=== PATIENT | female | born 1940 | race Caucasian/White ===

== ENCOUNTER → 2017-05-02 | Outpatient (CLI) | payer MEDICARE ==
[~2017-05-02] MED LIST: ACET1TAB12; AMLO5TAB2; AMLO5TAB2 PO; APAP PO; ASP325TEC PO; ATEN100T88 PO; ATEN50TA; ATEN50TA PO; CETI10TA17; CLN.1T; CLN.1T PO; CLOP75TA PO; FLUT1DIS28; FRSM40T PO; HYDR1TAB8; KCL20TCR PO; LORA1TAB; LORA1TAB PO; NF-CARBAMX; NF-CARBAMX PO; OMEP-10; OXY PO; OXYC1TAB95; PROP1TAB2; PROP1TAB77 PO; SIMV20TA3 PO; SLMFT1E INH; SRTR100T; SRTR100T PO; TRIA1CAP4 PO; TRIA1TAB3 PO
--- NOTE | 2017-05-02 15:26 | Diagnostic Imaging Report ---
INDICATION: Cough and COPD. COMPARISON: 09/02/2011. FINDINGS: The heart size is normal. The mediastinum is unremarkable. There is no pleural effusion or pneumothorax. IMPRESSION: No acute cardiopulmonary abnormality. Dictated by: Dictated on workstation # [id number]
== END ==
LOC: RAD 14:46
PROVIDERS: ATTEND Nurse Practitioner Family
DX: J44.9 Chronic obstructive pulmonary disease, unspecified (principal)
CPT/HCPCS: 71046

== ENCOUNTER → 2017-10-24 | Outpatient (CLI) | payer MEDICARE | END | disposition home or self-care (01) | LOC: PREOP 05:38 | PROVIDERS: ATTEND Surgery | DX: Z01.818 Encounter for other preprocedural examination (principal) ==

== ENCOUNTER 2020-07-13 12:35 | Inpatient (IN) | payer MEDICARE ==
[~2020-07-13] VITALS: Ht 165 cm; Wt 85.3 kg
[2020-07-13] MEDS ORDERED: RT-ALBUTEROL SULF 2.5 MG/3 ML PRE-MIX VIAL INH STA (12:40)
[2020-07-13] MEDS ORDERED: RT-ALBUTEROL/IPRATROPIUM 3 ML (DUONEB) VIAL INH ONE (12:45)
[2020-07-13 12:58] LABS: ABG OXYGEN SATURATION 97 % (94-100); ABG PCO2 61 MMHG (35-45); ABG PH 7.39 (7.37-7.43); ABG PO2 134 MMHG (79-93); ABG TCO2 38.6 MMOL/L (21.0-31.0)
--- NOTE | 2020-07-13 13:03 | Diagnostic Imaging Report ---
Portable erect AP chest at 12:59. Indication: Sepsis In the interval since the prior exam of 05/02/2020, a diffuse alveolar/interstitial infiltrate has developed throughout much of the left lung. Most likely secondary to pneumonia/atelectasis. There could be some pleural fluid present on the left as well. In addition there is also at least moderate pneumonia/atelectasis involving the right infrahilar region. There may be a small right pleural effusion present also. The right upper lung is generally clear. The heart is partially obscured but seems stable compared to the prior exam. The mediastinum is not widened. The osseous structures are intact. Impression: The appearance of the chest has worsened considerably since the prior exam as bilateral pneumonia/atelectasis and bilateral pleural effusions have developed. There is much greater involvement on the left. A followup study would be recommended for continued evaluation. Dictated by: Dictated on workstation # [id number]
[2020-07-13 13:04] LABS: BASOPHILS % (AUTO) 0 % (0-10); EOSINOPHILS # (AUTO) 0.1 10^3/uL (0.0-0.3); EOSINOPHILS % (AUTO) 0 % (0-10); HEMATOCRIT 33 % (35-52); HEMOGLOBIN 9.6 g/dL (11.5-16.0); LYMPHOCYTES # (AUTO) 0.7 X 10^3 (1.0-4.0); LYMPHOCYTES % (AUTO) 5 % (12-44); MEAN CORPUSCULAR HEMOGLOBIN 25 pg (25-34); MEAN CORPUSCULAR HGB CONC 29 g/dL (32-36); MEAN CORPUSCULAR VOLUME 84 fL (80-99); MEAN PLATELET VOLUME 10.9 fL (9.0-12.2); MONOCYTES % (AUTO) 7 % (0-12); NEUTROPHILS # (AUTO) 13.2 X 10^3 (1.8-7.8); NEUTROPHILS % (AUTO) 88 % (42-75); PLATELET COUNT 437 10^3/uL (130-400)
[2020-07-13 13:05] LABS: ALLENS TEST YES-POS
[2020-07-13 13:06] LABS: INSPIRED O2 BIPAP 100%; PATIENT TEMP 35.8; VENTILATOR NO
[2020-07-13 13:10] LABS: ALBUMIN 2.7 GM/DL (3.2-4.5); CHLORIDE 91 MMOL/L (98-107); INR 1.4 (0.8-1.4); POTASSIUM 3.8 MMOL/L (3.6-5.0); PROTHROMBIN TIME PATIENT 17.7 SEC (12.2-14.7); SODIUM 139 MMOL/L (135-145)
[2020-07-13 13:13] LABS: GLUCOSE 148 MG/DL (70-105); TOTAL PROTEIN 6.5 GM/DL (6.4-8.2)
[2020-07-13 13:14] LABS: CARBON DIOXIDE 33 MMOL/L (21-32)
[2020-07-13 13:15] LABS: BILIRUBIN,TOTAL 0.5 MG/DL (0.1-1.0)
[2020-07-13 13:16] LABS: ALKALINE PHOSPHATASE 66 U/L (40-136)
[2020-07-13 13:17] LABS: CREATININE SERUM 0.77 MG/DL (0.60-1.30); GFR ESTIMATED > 60
[2020-07-13 13:18] LABS: BUN/CREATININE RATIO 16
[2020-07-13 13:19] LABS: ALANINE AMINOTRANSFERASE 19 U/L (0-55)
[2020-07-13 13:35] LABS: ANISOCYTOSIS SLIGHT; BAND NEUTROPHILS 2 %; EOSINOPHILS % (MANUAL) 2 %; HYPOCHROMASIA SLIGHT; LYMPHOCYTES % (MANUAL) 5 %; MICROCYTOSIS SLIGHT; MONOCYTES % (MANUAL) 5 %; NEUTROPHILS % (MANUAL) 86 %
--- NOTE | 2020-07-13 14:10 | ED General ---
General Chief Complaint: Respiratory Problems Stated Complaint: SOA Nursing Triage Note: ARRIVED VIA EMS FROM HOME WITH INCREASED SOA OVER THE LAST TWO WEEKS. ARRIVED WITH C-PAP ON. WHEN CPAP REMOVED ET PULSE OX 69% Nursing Sepsis Screen: Possible Severe Sepsis Risk Source of Information: Patient, EMS History of Present Illness Date Seen by Provider: July 13, 2020 Time Seen by Provider: 12:35 Initial Comments This 80-year-old woman with COPD presents to the emergency room complaining of increasing shortness of breath. She was given a DuoNeb treatment, 20 mg of IV Decadron, and CPAP by EMS. When transitioning over to our BiPAP, her oxygen saturation dropped below 70%. Patient requested a DO NOT RESUSCITATE status but she requests that her experience be "painless". Patient denies increased cough or fever. She has not been vaccinated for COVID-19 but denies any exposures. Allergies and Home Medications Allergies Coded Allergies: Sulfa (Sulfonamide Antibiotics) (Verified Allergy, Unknown, 09/03/11) Tetanus Vaccines and Toxoid (Verified Allergy, Unknown, 09/03/11) Home Medications Amlodipine Besylate 5 Mg Tablet, 5 MG PO DAILY, (Reported) Aspirin 325 Mg Tabec, 325 MG PO DAILY, (Reported) Atenolol 100 Mg Tablet, 1 EACH PO DAILY, (Reported) Carbamazepine 100 Mg Tab.sr.12h, 100 MG PO DAILY, (Reported) Furosemide 40 Mg Tab, 40 MG PO BID, (Reported) Potassium Chloride 20 Meq Tab, 20 MEQ PO BID, (Reported) Sertraline Hcl 100 Mg Tab, 100 MG PO DAILY, (Reported) Simvastatin 20 Mg Tablet, 20 MG PO DAILY, (Reported) Patient Home Medication List Home Medication List Reviewed: Yes Review of Systems Review of Systems Constitutional: no symptoms reported EENTM: no symptoms reported Respiratory: see HPI Cardiovascular: no symptoms reported Gastrointestinal: no symptoms reported Genitourinary: no symptoms reported : No Musculoskeletal: no symptoms reported Skin: no symptoms reported Psychiatric/Neurological: No Symptoms Reported Hematologic/Lymphatic: No Symptoms Reported Immunological/Allergic: no symptoms reported Past Dvofcby-Cwxgrv-Nlkaby Hx Past Med/Social Hx: Reviewed Nursing Past Med/Soc Hx Patient Social History Alcohol Use: Denies Use Smoking Status: Former Smoker Recent Infectious Disease Expo: No Recent Hopitalizations: Yes Past Medical History Surgeries: Yes (GALLBLADDER, TONSILS, ANKLE, STENTS) Coronary Stent, Gallbladder, Tonsillectomy Respiratory: Yes COPD Cardiac: Yes (STENTS) Heart Attack Neurological: No Reproductive Disorders: No Genitourinary: No Gastrointestinal: Yes Musculoskeletal: Yes Arthritis Endocrine: No HEENT: No Cancer: No Psychosocial: Yes Blood Disorders: No Physical Exam-Suspected Sepsis Physical Exam Vital Signs Vital Signs - First Documented 07/13/20 07/13/20 07/13/20 12:38 12:52 15:48 Temp 36.0 Pulse 130 Resp 24 B/P (MAP) 150/96 (114) Pulse Ox 69 O2 Delivery Room Air O2 Flow Rate 80.00 FiO2 100 Capillary Refill : Greater Than 3 Seconds Blood Pressure Mean: 114 Height, Weight, BMI Height: '" Weight: lbs. oz. kg; 29.00 BMI Method:Stated General Appearance: WD/WN, Mild Distress HEENT: PERRL/EOMI, Normal ENT Inspection Neck: Normal Inspection Respiratory: Accessory Muscle Use, Decreased Breath Sounds, Wheezing Cardiovascular: No Edema, No Murmur, Tachycardia (Regular) Gastrointestinal: Non Tender, Soft Extremity: Non Tender, No Pedal Edema, Swelling Neurologic/Psychiatric: Alert, Oriented x3, No Motor/Sensory Deficits, Normal Mood/Affect, dinner cook II-XII Norm as Tested Skin: normal color, warm/dry Focused Exam Lactate Level 07/13/20 12:35: Lactic Acid Level 1.46 07/13/20 16:27: Lactic Acid Level 1.28 Lactic Acid Level Progress/Results/Core Measures Suspected Sepsis Recent Fever Within 48 Hours: No Infection Criteria Present: Suspected New Infection New/Unexplained Altered Menta: No Sepsis Screen: Possible Severe Sepsis Risk SIRS Temperature: Pulse: 125 Respiratory Rate: 23 Laboratory Tests 07/13/20 12:35: White Blood Count 15.0H Blood Pressure 150 /96 Mean: 114 07/13/20 12:35: Lactic Acid Level 1.46 07/13/20 16:27: Lactic Acid Level 1.28 Laboratory Tests 07/13/20 12:35: Creatinine 0.77, INR Comment 1.4, Platelet Count 437H, Total Bilirubin 0.5 Results/Orders Lab Results Laboratory Tests Test 07/13/20 12:35 07/13/20 12:45 07/13/20 15:55 07/13/20 16:27 Range/Units White Blood Count 15.0 H 4.3-11.0 10^3/uL Red Blood Count 3.89 3.80-5.11 10^6/uL Hemoglobin 9.6 L 11.5-16.0 g/dL Hematocrit 33 L 35-52 % Mean Corpuscular Volume 84 80-99 fL Mean Corpuscular Hemoglobin 25 25-34 pg Mean Corpuscular Hemoglobin Concent 29 L 32-36 g/dL Red Cell Distribution Width 16.2 H 10.0-14.5 % Platelet Count 437 H 130-400 10^3/uL Mean Platelet Volume 10.9 9.0-12.2 fL Immature Granulocyte % (Auto) 0 % Neutrophils (%) (Auto) 88 H 42-75 % Lymphocytes (%) (Auto) 5 L 12-44 % Monocytes (%) (Auto) 7 0-12 % Eosinophils (%) (Auto) 0 0-10 % Basophils (%) (Auto) 0 0-10 % Neutrophils # (Auto) 13.2 H 1.8-7.8 X 10^3 Lymphocytes # (Auto) 0.7 L 1.0-4.0 X 10^3 Monocytes # (Auto) 1.0 0.0-1.0 X 10^3 Eosinophils # (Auto) 0.1 0.0-0.3 10^3/uL Basophils # (Auto) 0.0 0.0-0.1 10^3/uL Immature Granulocyte # (Auto) 0.1 0.0-0.1 10^3/uL Neutrophils % (Manual) 86 % Lymphocytes % (Manual) 5 % Monocytes % (Manual) 5 % Eosinophils % (Manual) 2 % Band Neutrophils 2 % Hypochromasia SLIGHT Anisocytosis SLIGHT Microcytosis SLIGHT Prothrombin Time 17.7 H 12.2-14.7 SEC INR Comment 1.4 0.8-1.4 Activated Partial Thromboplast Time 34 24-35 SEC Sodium Level 139 135-145 MMOL/L Potassium Level 3.8 3.6-5.0 MMOL/L Chloride Level 91 L 98-107 MMOL/L Carbon Dioxide Level 33 H 21-32 MMOL/L Anion Gap 15 H 5-14 MMOL/L Blood Urea Nitrogen 12 7-18 MG/DL Creatinine 0.77 0.60-1.30 MG/DL Estimat Glomerular Filtration Rate > 60 BUN/Creatinine Ratio 16 Glucose Level 148 H 70-105 MG/DL Lactic Acid Level 1.46 1.28 0.50-2.00 MMOL/L Calcium Level 9.0 8.5-10.1 MG/DL Corrected Calcium 10.0 8.5-10.1 MG/DL Total Bilirubin 0.5 0.1-1.0 MG/DL Aspartate Amino Transf (AST/SGOT) 27 5-34 U/L Alanine Aminotransferase (ALT/SGPT) 19 0-55 U/L Alkaline Phosphatase 66 40-136 U/L C-Reactive Protein High Sensitivity 16.49 H 0.00-0.50 MG/DL B-Type Natriuretic Peptide 49.6 <100.0 PG/ML Total Protein 6.5 6.4-8.2 GM/DL Albumin 2.7 L 3.2-4.5 GM/DL Influenza Type A (RT-PCR) Not Detected Not Detecte Influenza Type B (RT-PCR) Not Detected Not Detecte SARS-CoV-2 RNA (RT-PCR) Not Detected Not Detecte Blood Gas Puncture Site L RAD Blood Gas Patient Temperature 35.8 Arterial Blood pH 7.39 7.37-7.43 Arterial Blood Partial Pressure CO2 61 H 35-45 MMHG Arterial Blood Partial Pressure O2 134 H 79-93 MMHG Arterial Blood HCO3 37 H 23-27 MMOL/L Arterial Blood Total CO2 38.6 H 21.0-31.0 MMOL/L Arterial Blood Oxygen Saturation 97 94-100 % Arterial Blood Base Excess 11.0 H -2.5-2.5 MMOL/L Lenny Test YES-POS Blood Gas Ventilator Setting NO Blood Gas Inspired Oxygen BIPAP 100% Urine Color DARK YELLOW Urine Clarity CLOUDY Urine pH 6.0 5-9 Urine Specific [place] >=1.030 1.016-1.022 Urine Protein 1+ H NEGATIVE Urine Glucose (UA) NEGATIVE NEGATIVE Urine Ketones 1+ H NEGATIVE Urine Nitrite NEGATIVE NEGATIVE Urine Bilirubin 1+ H NEGATIVE Urine Urobilinogen 1.0 < = 1.0 MG/DL Urine Leukocyte Esterase NEGATIVE NEGATIVE Urine RBC (Auto) TRACE-I NEGATIVE Urine RBC 2-5 H /HPF Urine WBC 2-5 /HPF Urine Crystals PRESENT H /LPF Urine Amorphous Sediment LARGE FLOR URATES H /LPF Urine Bacteria TRACE /HPF Urine Casts NONE /LPF Urine Mucus NEGATIVE /LPF Urine Culture Indicated CULTURE PENDING Test 07/13/20 20:05 Range/Units My Orders Orders - KENDRA HURTADO MD Cbc With Automated Diff (07/13/20 12:40) Comprehensive Metabolic Panel (07/13/20 12:40) Blood Culture (07/13/20 12:40) Sputum Culture (07/13/20 12:40) Urine Culture (07/13/20 12:40) Protime With Inr (07/13/20 12:40) Partial Thromboplastin Time (07/13/20 12:40) Chest 1 View, Ap/Pa Only (07/13/20 12:40) Ed Iv/Invasive Line Start (07/13/20 12:40) Ed Iv/Invasive Line Start (07/13/20 12:40) Vital Signs Adult Sepsis Patie Q15M (07/13/20 12:40) O2 (07/13/20 12:40) Remove Rings In Anticipation O (07/13/20 12:40) Lactic Acid Analyzer (07/13/20 12:40) BNP (07/13/20 12:40) Hs C Reactive Protein (07/13/20 12:40) Albuterol Pre-Mix Nebs (Rt) (Proventil (07/13/20 12:40) Albuterol/Ipra Inhalation Soln (Duoneb I (07/13/20 12:45) Svn Small Volume Nebulizer (07/13/20 12:40) Svn Small Volume Nebulizer (07/13/20 12:40) Covid 19 Inhouse Test (07/13/20 12:41) Influenza A And B By Pcr (07/13/20 12:41) Arterial Blood Gas (07/13/20 12:45) Arterial Blood Draw (07/13/20 ) Manual Differential (07/13/20 12:35) Cefepime Injection (Maxipime Injection) (07/13/20 14:15) Lactated Ringers (Lr 1000 Ml Iv Solution (07/13/20 14:15) Hydrocodone/Apap 5/325 Tablet (Lortab 5 (07/13/20 14:45) Medications Given in ED Current Medications Medications Dose Ordered Sig/Iveth Route Start Time Stop Time Status Last Admin Dose Admin Albuterol/ Ipratropium 3 ml ONCE ONCE INH 07/13/20 12:45 07/13/20 12:46 DC 07/13/20 12:52 3 ML Vital Signs/I&O 07/13/20 07/13/20 07/13/20 07/13/20 12:38 12:52 15:33 15:45 Temp 36.0 Pulse 130 125 121 124 Resp 24 23 16 33 B/P (MAP) 150/96 (114) 144/65 144/72 (96) Pulse Ox 69 100 95 O2 Delivery Room Air Nasal Cannula Vapotherm O2 Flow Rate 80.00 4.00 30.00 100.00 07/13/20 07/13/20 07/13/20 07/13/20 15:48 15:49 16:00 16:00 Temp 36.0 Pulse 125 118 Resp 21 B/P (MAP) 142/70 (94) Pulse Ox 95 95 97 97 O2 Delivery Vapotherm Vapotherm Vapotherm O2 Flow Rate 30.00 30.00 30.00 100.00 FiO2 100 100 80 07/13/20 07/13/20 07/13/20 07/13/20 16:01 16:41 17:00 18:00 Pulse 123 108 Resp 21 B/P (MAP) 119/62 (81) Pulse Ox 91 91 O2 Delivery Vapotherm Vapotherm Vapotherm O2 Flow Rate 30.00 30.00 30.00 80.00 80.00 FiO2 80 07/13/20 18:00 Pulse 101 Resp 20 B/P (MAP) 120/57 (78) Pulse Ox 91 O2 Delivery Vapotherm O2 Flow Rate 30.00 80.00 Capillary Refill : Greater Than 3 Seconds Blood Pressure Mean: 114 Progress Note #1: Time: 14:09 Progress Note Patient appears to have a sepsis with respiratory failure and COPD exacerbation. In the absence of presence of heart failure was uncertain until the BNP returned normal. We can now start high-volume fluid resuscitation for severe sepsis. We will start with a liter of LR in the emergency room. Patient is feeling much better. She is receiving an hour-long plus nebulizer treatment. She received dexamethasone 20 mg by EMS. It is unclear to me in retrospect if that was nebulized or injected. Progress Note #2: Progress Note Cefepime was administered for initial antibiotic therapy. Diagnostic Imaging Diagonstic Imaging: Xray Plain Films/CT/US/NM/MRI: chest Comments NAME: GENEVIEVE [facility]INOCO [facility] REC#: [id number] PT STATUS: REG ER : 1940 PHYSICIAN: KENDRA HURTADO MD ADMIT DATE: 07/13/20/ER Draft Date of Exam:07/13/20 CHEST 1 VIEW, AP/PA ONLY Portable erect AP chest at 12:59. Indication: Sepsis In the interval since the prior exam of 05/02/2020, a diffuse alveolar/interstitial infiltrate has developed throughout much of the left lung. Most likely secondary to pneumonia/atelectasis. There could be some pleural fluid present on the left as well. In addition there is also at least moderate pneumonia/atelectasis involving the right infrahilar region. There may be a small right pleural effusion present also. The right upper lung is generally clear. The heart is partially obscured but seems stable compared to the prior exam. The mediastinum is not widened. The osseous structures are intact. Impression: The appearance of the chest has worsened considerably since the prior exam as bilateral pneumonia/atelectasis and bilateral pleural effusions have developed. There is much greater involvement on the left. A followup study would be recommended for continued evaluation. Dictated on workstation # [id number] Dict: 07/13/20 1300 Trans: 07/13/20 1302 [facility] [id number] Interpreted by: ANASTACIA RODRIGUEZ MD Departure Communication (Admissions) Time/Spoke to Admitting Phy: 13:30 Dr. Mookie Domínguez Impression Primary Impression: Severe sepsis Additional Impressions: Pneumonia Qualified Codes: J18.9 - Pneumonia, unspecified organism Respiratory failure Qualified Codes: J96.01 - Acute respiratory failure with hypoxia; J96.02 - Acute respiratory failure with hypercapnia COPD exacerbation Disposition: ADMITTED INPATIENT Condition: Improved Admissions Decision to Admit Reason: Admit from ER (General) Decision to Admit/Date: July 13, 2020 Time/Decision to Admit Time: 12:40 Departure-Patient Inst. Referrals: ABHIJIT VELASQUEZ MD (PCP/Family) Primary Care Physician KENDRA HURTADO MD July 13, 2020 14:10
[2020-07-13] MEDS ORDERED: LACTATED RINGERS 1,000 ML IV ONE (14:15)
[2020-07-13] MEDS ORDERED: CEFEPIME INJECTION 2,000 MG in WATER (STERILE) FOR INJECTION 20 ML IV ONE (14:15)
[2020-07-13] MEDS ORDERED: HYDROcodone/APAP 5 MG/325 MG (LORTAB) TAB PO ONE (14:45)
[2020-07-13 15:49] VITALS: BP 150/96
[2020-07-13] MEDS ORDERED: RT-ALBUTEROL/IPRATROPIUM 3 ML (DUONEB) VIAL INH PRN (16:00)
[2020-07-13 16:11] LABS: BILIRUBIN,URINE 1+ (NEGATIVE); CLARITY,URINE CLOUDY; COLOR,URINE DARK YELLOW; GLUCOSE, URINE (UA) NEGATIVE (NEGATIVE); KETONES,URINE 1+ (NEGATIVE); LEUKOCYTE ESTERASE ,URINE NEGATIVE (NEGATIVE); NITRITE,URINE NEGATIVE (NEGATIVE); PROTEIN,URINE 1+ (NEGATIVE)
[2020-07-13] MEDS ORDERED: LACTATED RINGERS 1,000 ML IV SCH (16:30)
[2020-07-13 16:33] LABS: AMORPHOUS SEDIMENT,UR LARGE AMOR URATES /LPF; BACTERIA,URINE TRACE /HPF
[2020-07-13] MEDS: methylPREDNISolone 40 MG/ML (Solu-MEDROL) VIAL IV SCH ×2 (17:40→20:42)
[2020-07-13] MEDS: RT-ALBUTEROL/IPRATROPIUM 3 ML (DUONEB) VIAL INH SCH ×2 (18:00→22:33)
[2020-07-13] MEDS: CEFEPIME 1,000 MG/SWFI 10 ML IV PUSH IV SCH ×2 (19:36)
--- NOTE | 2020-07-13 19:58 | History & Physical ---
History of Present Illness History of Present Illness Reason for visit/HPI 80 year old female admitted for acute respiratory failure with hypoxia due to pneumonia, COPD exacerbation, and pleural effusions. Patient was brought in by EMS on CPAP and desaturated to 60s when the CPAP was removed. Unsure if she was given dexamethasone IV or inhaled- I suspect it was inhaled treatment. Patient did improve after an hour long breathing treatment. Patient made it clear she wants to be DNR and pass peacefully and least amount of pain. On interviewing her in the ICU- She denies any pain. Feels better but a little groggy as I woke her up from being asleep. Not wanting to converse. Blood pressure holding steady. No fever. Tachycardia at times. COVID, flu negative. Date of Admission July 13, 2020 at 13:30 Date Seen by a Provider: July 13, 2020 Time Seen by a Provider: 19:58 I consulted on this patient on 07/13/20 19:58 Attending Physician Mookie Flanagan MD Admitting Physician Italia Goldman MD Consult Allergies and Home Medications Allergies Coded Allergies: Sulfa (Sulfonamide Antibiotics) (Verified Allergy, Unknown, 09/03/11) Tetanus Vaccines and Toxoid (Verified Allergy, Unknown, 09/03/11) Home Medications Amlodipine Besylate 5 Mg Tablet, 5 MG PO DAILY, (Reported) Aspirin 325 Mg Tabec, 325 MG PO DAILY, (Reported) Atenolol 100 Mg Tablet, 1 EACH PO DAILY, (Reported) Last Action: Continued Carbamazepine 100 Mg Tab.sr.12h, 100 MG PO DAILY, (Reported) Furosemide 40 Mg Tab, 40 MG PO BID, (Reported) Potassium Chloride 20 Meq Tab, 20 MEQ PO BID, (Reported) Sertraline Hcl 100 Mg Tab, 100 MG PO DAILY, (Reported) Last Action: Continued Simvastatin 20 Mg Tablet, 20 MG PO DAILY, (Reported) Patient Home Medication List Home Medication List Reviewed: No Past Mwjgwfu-Ajtcum-Qjbiha Hx Patient Social History Smoking Status: Former Smoker Recent Hopitalizations: Yes Have you traveled recently?: No Alcohol Use?: No Pt feels they are or have been: No Surgeries Yes (GALLBLADDER, TONSILS, ANKLE, STENTS) Respiratory Yes Cardiovascular Yes (STENTS) Heart Attack Neurological No Reproductive System Hx Reproductive Disorders: No Genitourinary No Gastrointestinal Yes Musculoskeletal Yes Arthritis Endocrine History of Endocrine Disorders: No Cancer No Psychosocial History of Psychiatric Problem: Yes Blood Transfusions History of Blood Disorders: No Review of Systems Review of Systems General: No Chills, No Night Sweats HEENT: No Visual Changes Pulmonary: Dyspnea Cardiovascular: No: Chest Pain, Palpitations Gastrointestinal: No: Nausea, Vomiting Genitourinary: No Dysuria Musculoskeletal: No: arm pain, back pain Neurological: Weakness Physical Exam Vital Signs Vital Signs - First Documented 07/13/20 07/13/20 07/13/20 12:38 12:52 15:48 Temp 36.0 Pulse 130 Resp 24 B/P (MAP) 150/96 (114) Pulse Ox 69 O2 Delivery Room Air O2 Flow Rate 80.00 FiO2 100 Capillary Refill : Greater Than 3 Seconds Height, Weight, BMI Height: '" Weight: lbs. oz. kg; 29.75 BMI Method:Stated General Appearance: Mild Distress HEENT: PERRL/EOMI (left eyelid droopy, white/clouding of left eye.) Neck: Non Tender, Supple Respiratory: Chest Non Tender, Crackles, Decreased Breath Sounds, Respiratory Distress (mild) Cardiovascular: Regular Rate, Rhythm Gastrointestinal: Non Tender, Soft Rectal: Deferred Back: Normal Inspection, No CVA Tenderness Extremity: Non Tender, No Calf Tenderness Neurologic/Psychiatric: Alert Skin: Warm/Dry Lymphatic: No Adenopathy Assessment/Plan Assessment/Plan Admission Dx sepsis due to pneumonia acute hypoxic respiratory failure COPD exacerbation. Admission Status: Inpatient Order (span 2 midnights) Reason for Inpatient Admission: expect patient to be admitted for over 2 midnights. With her comorbidities and likely low baseline reserve she will not recover within 2 midnights- given extent of her pneumonia (bilateral) and pleural effusions. Assessment and Plan 07/13/20- admitted for sepsis due to pneumonia viral vs bacterial- procalcitonin level indicates not bacterial. CXR supports pneumonia- left side lungs. But also likely has pleural effusion bilaterally. Blood pressure is holding. Turned down IVF from 150 to 100ml/hr. Decision making process- suspect she has a some degree of left heart failure and flooding her with IVF would be detrimental as her sepsis is not likely to progress to severe/shock. Also patient is DNR and her bigger issue right now is COPD exacerbation. -Continue respiratory support- may need CPAP/BiPAP- continue IV steroids and cefepime. -will reassess in AM with CXR and labs. -will assess cardiac function- with echocardiogram- as I suspect a lower LVEF. Dispo: guarded DVT ppx: lovenox. Problems: (1) Acute respiratory failure with hypoxia (2) Sepsis (3) COPD exacerbation (4) Pneumonia Qualifiers: Qualified Codes: J18.9 - Pneumonia, unspecified organism (5) HTN (hypertension) Qualifiers: Qualified Codes: I10 - Essential (primary) hypertension Assessment & Plan: holding bp medications. (6) DMII (diabetes mellitus, type 2) Assessment & Plan: as long as she is on steroids expect high blood sugars. Sliding scale insulin. MOOKIE FLANAGAN MD July 13, 2020 19:58
[2020-07-13] MEDS: inSUlin ASPART (NovoLOG) 1 UNIT/0.01 ML (CHARGE PER UNIT) SC SCH (20:42)
[2020-07-13] MEDS: LACTATED RINGERS 1,000 ML IV SCH (22:27)
[2020-07-14] MEDS: CEFEPIME 1,000 MG/SWFI 10 ML IV PUSH IV SCH ×8 (01:52→20:11)
[2020-07-14] MEDS: RT-ALBUTEROL/IPRATROPIUM 3 ML (DUONEB) VIAL INH SCH ×6 (02:23→22:15)
[2020-07-14 03:15] LABS: CHLORIDE 94 MMOL/L (98-107); POTASSIUM 3.4 MMOL/L (3.6-5.0); SODIUM 139 MMOL/L (135-145)
[2020-07-14 03:16] LABS: CALCIUM 9.1 MG/DL (8.5-10.1)
[2020-07-14 03:17] LABS: GLUCOSE 245 MG/DL (70-105)
[2020-07-14 03:18] LABS: CARBON DIOXIDE 34 MMOL/L (21-32)
[2020-07-14 03:20] LABS: CREATININE SERUM 0.77 MG/DL (0.60-1.30); GFR ESTIMATED > 60
[2020-07-14 03:21] LABS: BUN/CREATININE RATIO 22
[2020-07-14 03:23] LABS: MAGNESIUM 1.4 MG/DL (1.6-2.4)
[2020-07-14] MEDS: methylPREDNISolone 40 MG/ML (Solu-MEDROL) VIAL IV SCH ×4 (04:01→22:49)
[2020-07-14] MEDS: inSUlin ASPART (NovoLOG) 1 UNIT/0.01 ML (CHARGE PER UNIT) SC SCH ×4 (05:21→20:11)
[2020-07-14] MEDS: KCL 20 MEQ TAB (K-DUR) PO SCH (05:22)
[2020-07-14] MEDS: POTASSIUM CL 10MEQ/50ML IVPB 50 ML IV SCH (05:30)
[2020-07-14] MEDS: MAGNESIUM 1 GM/100 ML IVPB 100 ML IV SCH (05:30)
[2020-07-14 06:59] LABS: BASOPHILS % (AUTO) 0 % (0-10); EOSINOPHILS % (AUTO) 0 % (0-10); HEMATOCRIT 29 % (35-52); HEMOGLOBIN 8.6 g/dL (11.5-16.0); LYMPHOCYTES # (AUTO) 0.5 10^3/uL (1.0-4.0); LYMPHOCYTES % (AUTO) 4 % (12-44); MEAN CORPUSCULAR HEMOGLOBIN 25 pg (25-34); MEAN CORPUSCULAR HGB CONC 29 g/dL (32-36); MEAN CORPUSCULAR VOLUME 85 fL (80-99); MONOCYTES # (AUTO) 0.4 10^3/uL (0.0-1.0); MONOCYTES % (AUTO) 3 % (0-12); NEUTROPHILS # (AUTO) 12.4 10^3/uL (1.8-7.8); NEUTROPHILS % (AUTO) 93 % (42-75); PLATELET COUNT 313 10^3/uL (130-400); WHITE BLOOD COUNT 13.3 10^3/uL (4.3-11.0)
[2020-07-14 07:24] LABS: LYMPHOCYTES % (MANUAL) 5 %; MONOCYTES % (MANUAL) 2 %; NEUTROPHILS % (MANUAL) 93 %; POLYCHROMASIA SLIGHT
[2020-07-14 07:25] LABS: ELLIPT/OVALOCYTES SLIGHT
[2020-07-14] MEDS: LACTATED RINGERS 1,000 ML IV SCH ×2 (07:31→15:49)
--- NOTE | 2020-07-14 08:21 | Diagnostic Imaging Report ---
INDICATION: COPD exacerbation, congestive heart failure. COMPARISON STUDY: Chest from yesterday. FINDINGS: Frontal view of the chest demonstrates bilateral pulmonary infiltrates, left greater than right, with a moderate to large left pleural effusion. The infiltrates appear little better on the right but worse on the left. Heart size appears stable. Vascularity is normal. IMPRESSION: Left pleural effusion is unchanged to slightly increased. Bilateral infiltrates worse on the left than the right have improved on the right but are worse on the left. Recommend continued follow-up exams. Dictated by: Dictated on workstation # [id number]
--- NOTE | 2020-07-14 10:08 | Pulmonary Progress Note ---
Subjective Date Seen by a Provider: July 14, 2020 Time Seen by a Provider: 10:03 Subjective/Events-last exam 80 admitted last night for SOB, thought to have PNA and COPD exacerbation, started on IV Cefepime, albuterol, COPD, not on anticoagulation, will order Remains on FiO2 80% vapotherm, 25 lpm no CP, but some SOB no coughing, no wheezing, has pitting edema Review of Systems Pulmonary: Dyspnea Sepsis Event Evaluation Height, Weight, BMI Height: '" Weight: lbs. oz. kg; 29.75 BMI Method:Stated Focused Exam Lactate Level 07/13/20 12:35: Lactic Acid Level 1.46 07/13/20 16:27: Lactic Acid Level 1.28 Exam Exam Vital Signs Date Time Temp Pulse Resp B/P (MAP) Pulse Ox O2 Delivery O2 Flow Rate FiO2 07/14/20 09:00 126 13 141/74 (96) 91 Vapotherm 25.00 70.00 07/14/20 08:00 120 16 136/64 (88) 90 Vapotherm 25.00 70.00 07/14/20 08:00 91 Vapotherm 25.00 80 07/14/20 07:40 36.6 Vapotherm 25.00 70.00 07/14/20 07:10 94 Vapotherm 30.00 80 07/14/20 07:00 102 07/14/20 07:00 102 14 147/75 (99) 90 Vapotherm 30.00 80.00 07/14/20 06:00 118 148/72 (97) 94 Vapotherm 30.00 80.00 07/14/20 05:07 106 144/81 (102) 92 Vapotherm 30.00 80.00 07/14/20 04:00 36.1 07/14/20 04:00 95 Vapotherm 30.00 80 07/14/20 03:50 102 129/67 (87) 96 Vapotherm 30.00 80.00 07/14/20 02:45 116 12 158/70 (99) Vapotherm 30.00 80.00 07/14/20 02:24 94 Vapotherm 30.00 80 07/14/20 02:00 105 13 140/61 (87) 92 Vapotherm 30.00 80.00 07/14/20 01:00 101 17 117/51 (73) 91 Vapotherm 30.00 80.00 07/14/20 01:00 101 07/14/20 00:00 36.1 07/14/20 00:00 105 144/58 (86) 93 Vapotherm 30.00 80.00 07/13/20 23:59 95 Vapotherm 30.00 80 07/13/20 23:08 106 20 148/75 (99) 95 Vapotherm 30.00 80.00 07/13/20 22:33 92 Vapotherm 30.00 80 07/13/20 22:00 90 17 122/57 (78) 93 Vapotherm 30.00 80.00 07/13/20 22:00 36.0 07/13/20 21:00 93 11 146/66 (92) 92 Vapotherm 30.00 80.00 07/13/20 20:00 97 Vapotherm 30.00 80 07/13/20 20:00 93 18 113/52 (72) 92 Vapotherm 30.00 80.00 07/13/20 19:00 98 07/13/20 19:00 98 18 117/54 (75) 92 Vapotherm 30.00 80.00 07/13/20 18:00 101 20 120/57 (78) 91 Vapotherm 30.00 80.00 07/13/20 18:00 91 Vapotherm 30.00 80 07/13/20 17:00 108 21 119/62 (81) 91 Vapotherm 30.00 80.00 07/13/20 16:41 Vapotherm 30.00 80.00 07/13/20 16:01 123 07/13/20 16:00 97 Vapotherm 30.00 80 07/13/20 16:00 118 21 142/70 (94) 97 Vapotherm 30.00 100.00 07/13/20 15:49 36.0 125 95 100 07/13/20 15:48 95 Vapotherm 30.00 100 07/13/20 15:45 124 33 144/72 (96) Vapotherm 30.00 100.00 07/13/20 15:33 121 16 144/65 95 Nasal Cannula 4.00 07/13/20 12:52 125 23 100 80.00 07/13/20 12:38 36.0 130 24 150/96 (114) 69 Room Air I & O 07/14/20 07:00 Intake Total 2470 ml Output Total 640 ml Balance 1830 ml Height & Weight Height: '" Weight: lbs. oz. kg; 29.75 BMI Method:Stated General Appearance: Mild Distress HEENT: PERRL/EOMI (left eyelid droopy, white/clouding of left eye.) Neck: Non Tender, Supple Respiratory: Chest Non Tender, Lungs Clear, Crackles, Decreased Breath Sounds, Respiratory Distress (mild) Cardiovascular: Regular Rate, Rhythm, Tachycardia Capillary Refill: Greater Than 3 Seconds Gastrointestinal: normal bowel sounds, non tender, soft Extremity: Non Tender, No Calf Tenderness, Pedal Edema Neurologic/Psychiatric: Alert, Oriented x3 Skin: Warm/Dry Lymphatic: No Adenopathy Results Lab Laboratory Tests 07/13/20 12:35 07/14/20 02:38 Assessment/Plan Assessment/Plan Still has high oxygen needs, will elave on vapotherm, continue abx and steroids, albuterol CXR shows bilateral infiltrates, COVID neg has chronic tachycardia, if does up will add beta suellen, Time spent with patient (mins): 15 ROMERO VIRAMONTES MD July 14, 2020 10:08
[2020-07-14] MEDS ORDERED: FUROSEMIDE 40 MG/4 ML INJ (LASIX) IVP ONE (10:30)
--- NOTE | 2020-07-14 10:30 | Progress Note ---
Subjective Subjective Date Seen by Provider: July 14, 2020 Time Seen by Provider: 11:25 No overnight events. Patient is alert this AM and willing to talk. She reports she is under a great deal of social stress and sadness with multiple issues with her family (a daughter's and she has nothing because he controlled everything on his phone, finances, etc). She would like to live long enough to see things improve. -also she is having some left rib pain- which she attributes to a fall she sustained about 10 days or so ago. She slipped and fell alf into the bathtub. She did not hit her head or LOC. She would like to restart her atenolol and zoloft. Patient say Dr. Goldman's office 2 years ago but she moved to [place] and has seen a Dr. Sarah Moraes twice she thinks. Review of Systems General: No Chills, No Night Sweats HEENT: No Visual Changes Pulmonary: Dyspnea Cardiovascular: No: Chest Pain, Palpitations Gastrointestinal: No: Nausea, Vomiting Genitourinary: No Dysuria Musculoskeletal: No: arm pain, back pain Neurological: Weakness Objective Exam Vital Signs Vital Signs Date Time Temp Pulse Resp B/P (MAP) Pulse Ox O2 Delivery O2 Flow Rate FiO2 07/14/20 10:00 115 18 148/72 (97) 93 Vapotherm 25.00 70.00 07/14/20 09:00 126 13 141/74 (96) 91 Vapotherm 25.00 70.00 07/14/20 08:00 120 16 136/64 (88) 90 Vapotherm 25.00 70.00 07/14/20 08:00 91 Vapotherm 25.00 80 07/14/20 07:40 36.6 Vapotherm 25.00 70.00 07/14/20 07:10 94 Vapotherm 30.00 80 07/14/20 07:00 102 07/14/20 07:00 102 14 147/75 (99) 90 Vapotherm 30.00 80.00 07/14/20 06:00 118 148/72 (97) 94 Vapotherm 30.00 80.00 07/14/20 05:07 106 144/81 (102) 92 Vapotherm 30.00 80.00 07/14/20 04:00 36.1 07/14/20 04:00 95 Vapotherm 30.00 80 07/14/20 03:50 102 129/67 (87) 96 Vapotherm 30.00 80.00 07/14/20 02:45 116 12 158/70 (99) Vapotherm 30.00 80.00 07/14/20 02:24 94 Vapotherm 30.00 80 07/14/20 02:00 105 13 140/61 (87) 92 Vapotherm 30.00 80.00 07/14/20 01:00 101 17 117/51 (73) 91 Vapotherm 30.00 80.00 07/14/20 01:00 101 07/14/20 00:00 36.1 07/14/20 00:00 105 144/58 (86) 93 Vapotherm 30.00 80.00 07/13/20 23:59 95 Vapotherm 30.00 80 07/13/20 23:08 106 20 148/75 (99) 95 Vapotherm 30.00 80.00 07/13/20 22:33 92 Vapotherm 30.00 80 07/13/20 22:00 90 17 122/57 (78) 93 Vapotherm 30.00 80.00 07/13/20 22:00 36.0 07/13/20 21:00 93 11 146/66 (92) 92 Vapotherm 30.00 80.00 07/13/20 20:00 97 Vapotherm 30.00 80 07/13/20 20:00 93 18 113/52 (72) 92 Vapotherm 30.00 80.00 07/13/20 19:00 98 07/13/20 19:00 98 18 117/54 (75) 92 Vapotherm 30.00 80.00 07/13/20 18:00 101 20 120/57 (78) 91 Vapotherm 30.00 80.00 07/13/20 18:00 91 Vapotherm 30.00 80 07/13/20 17:00 108 21 119/62 (81) 91 Vapotherm 30.00 80.00 07/13/20 16:41 Vapotherm 30.00 80.00 07/13/20 16:01 123 07/13/20 16:00 97 Vapotherm 30.00 80 07/13/20 16:00 118 21 142/70 (94) 97 Vapotherm 30.00 100.00 07/13/20 15:49 36.0 125 95 100 07/13/20 15:48 95 Vapotherm 30.00 100 07/13/20 15:45 124 33 144/72 (96) Vapotherm 30.00 100.00 07/13/20 15:33 121 16 144/65 95 Nasal Cannula 4.00 07/13/20 12:52 125 23 100 80.00 07/13/20 12:38 36.0 130 24 150/96 (114) 69 Room Air I & O 07/14/20 07:00 Intake Total 2470 ml Output Total 640 ml Balance 1830 ml General Appearance: Mild Distress HEENT: PERRL/EOMI (left eyelid droopy, white/clouding of left eye.) Neck: Non Tender, Supple Respiratory: Chest Non Tender, Crackles, Decreased Breath Sounds (left lung), Respiratory Distress (mild) Cardiovascular: Regular Rate, Rhythm (tachycardia) Gastrointestinal: Non Tender, Soft Rectal: Deferred Back: Normal Inspection, No CVA Tenderness Extremity: Non Tender, No Calf Tenderness Neurologic/Psychiatric: Alert Skin: Warm/Dry Lymphatic: No Adenopathy Results Lab Laboratory Tests 07/13/20 12:35: White Blood Count 15.0H, Red Blood Count 3.89, Hemoglobin 9.6L, Hematocrit 33L, Mean Corpuscular Volume 84, Mean Corpuscular Hemoglobin 25, Mean Corpuscular Hemoglobin Concent 29L, Red Cell Distribution Width 16.2H, Platelet Count 437H, Mean Platelet Volume 10.9, Immature Granulocyte % (Auto) 0, Neutrophils (%) (Auto) 88H, Lymphocytes (%) (Auto) 5L, Monocytes (%) (Auto) 7, Eosinophils (%) (Auto) 0, Basophils (%) (Auto) 0, Neutrophils # (Auto) 13.2H, Lymphocytes # (Auto) 0.7L, Monocytes # (Auto) 1.0, Eosinophils # (Auto) 0.1, Basophils # (Auto) 0.0, Immature Granulocyte # (Auto) 0.1, Neutrophils % (Manual) 86, Lymphocytes % (Manual) 5, Monocytes % (Manual) 5, Eosinophils % (Manual) 2, Band Neutrophils 2, Hypochromasia SLIGHT, Anisocytosis SLIGHT, Microcytosis SLIGHT, Prothrombin Time 17.7H, INR Comment 1.4, Activated Partial Thromboplast Time 34, Sodium Level 139, Potassium Level 3.8, Chloride Level 91L, Carbon Dioxide Level 33H, Anion Gap 15H, Blood Urea Nitrogen 12, Creatinine 0.77, Estimat Glomerular Filtration Rate > 60, BUN/Creatinine Ratio 16, Glucose Level 148H, Lactic Acid Level 1.46, Calcium Level 9.0, Corrected Calcium 10.0, Total Bilirubin 0.5, Aspartate Amino Transf (AST/SGOT) 27, Alanine Aminotransferase (ALT/SGPT) 19, Alkaline Phosphatase 66, C-Reactive Protein High Sensitivity 16.49H, B-Type Natriuretic Peptide 49.6, Total Protein 6.5, Albumin 2.7L, Influenza Type A (RT- PCR) Not Detected, Influenza Type B (RT-PCR) Not Detected, SARS-CoV-2 RNA (RT- PCR) Not Detected 07/13/20 12:45: Blood Gas Puncture Site L RAD, Blood Gas Patient Temperature 35.8, Arterial Blood pH 7.39, Arterial Blood Partial Pressure CO2 61H, Arterial Blood Partial Pressure O2 134H, Arterial Blood HCO3 37H, Arterial Blood Total CO2 38.6H, Arterial Blood Oxygen Saturation 97, Arterial Blood Base Excess 11.0H, Lenny Test YES-POS, Blood Gas Ventilator Setting NO, Blood Gas Inspired Oxygen BIPAP 100% 07/13/20 15:55: Urine Color DARK YELLOW, Urine Clarity CLOUDY, Urine pH 6.0, Urine Specific Alpine >=1.030, Urine Protein 1+H, Urine Glucose (UA) NEGATIVE, Urine Ketones 1+H, Urine Nitrite NEGATIVE, Urine Bilirubin 1+H, Urine Urobilinogen 1.0, Urine Leukocyte Esterase NEGATIVE, Urine RBC (Auto) TRACE-I, Urine RBC 2-5H, Urine WBC 2-5, Urine Crystals PRESENTH, Urine Amorphous Sediment LARGE FLOR URATESH, Urine Bacteria TRACE, Urine Casts NONE, Urine Mucus NEGATIVE, Urine Culture Indicated CULTURE PENDING 07/13/20 16:27: Lactic Acid Level 1.28 07/13/20 20:05: Procalcitonin 0.09 07/13/20 20:27: Glucometer 262H 07/14/20 02:38: White Blood Count 13.3H, Red Blood Count 3.47L, Hemoglobin 8.6L, Hematocrit 29L, Mean Corpuscular Volume 85, Mean Corpuscular Hemoglobin 25, Mean Corpuscular Hemoglobin Concent 29L, Red Cell Distribution Width 16.0H, Platelet Count 313, Mean Platelet Volume 12.0, Immature Granulocyte % (Auto) 1, Neutrophils (%) (Auto) 93H, Lymphocytes (%) (Auto) 4L, Monocytes (%) (Auto) 3, Eosinophils (%) (Auto) 0, Basophils (%) (Auto) 0, Neutrophils # (Auto) 12.4H, Lymphocytes # (Auto) 0.5L, Monocytes # (Auto) 0.4, Eosinophils # (Auto) 0.0, Basophils # (Auto) 0.0, Immature Granulocyte # (Auto) 0.1, Neutrophils % (Manual) 93, Lymp hocytes % (Manual) 5, Monocytes % (Manual) 2, Polychromasia SLIGHT, Basophilic Stippling SLIGHT, Elliptocytes SLIGHT, Sodium Level 139, Potassium Level 3.4L, Chloride Level 94L, Carbon Dioxide Level 34H, Anion Gap 11, Blood Urea Nitrogen 17, Creatinine 0.77, Estimat Glomerular Filtration Rate > 60, BUN/Creatinine Ratio 22, Glucose Level 245H, Calcium Level 9.1, Phosphorus Level 3.0, Magnesium Level 1.4L 07/14/20 10:15: Glucometer 231H Assessment/Plan Assessment/Plan Admission Dx sepsis due to pneumonia acute hypoxic respiratory failure COPD exacerbation. Assessment and Plan 07/13/20- admitted for sepsis due to pneumonia viral vs bacterial- procalcitonin level indicates not bacterial. CXR supports pneumonia- left side lungs. But also likely has pleural effusion bilaterally. Blood pressure is holding. Turned down IVF from 150 to 100ml/hr. Decision making process- suspect she has a some degree of left heart failure and flooding her with IVF would be detrimental as her sepsis is not likely to progress to severe/shock. Also patient is DNR and her bigger issue right now is COPD exacerbation. -Continue respiratory support- may need CPAP/BiPAP- continue IV steroids and cefepime. -will reassess in AM with CXR and labs. -will assess cardiac function- with echocardiogram- as I suspect a lower LVEF. 07/14/20- will do a trial furosemide 40mg iv and see what cxr looks like tomorrow in regards to fluid. Baseline oxygen requirement at home is 3L. She is feeling better -RT to work on titrating oxygen requirement -vapotherm. resumed atenolol to help with her tachycardia and zoloft to help with her anxiety- which also should help with tachycardia. Dispo: guarded DVT ppx: lovenox. Problems: (1) Acute respiratory failure with hypoxia (2) Sepsis (3) COPD exacerbation Assessment & Plan: baseline oxygen requirement- 3L at home. (4) Pneumonia Qualifiers: Qualified Codes: J18.9 - Pneumonia, unspecified organism (5) HTN (hypertension) Qualifiers: Qualified Codes: I10 - Essential (primary) hypertension Assessment & Plan: holding bp medications. (6) DMII (diabetes mellitus, type 2) Assessment & Plan: as long as she is on steroids expect high blood sugars. Sliding scale insulin. (7) Hypomagnesemia Assessment & Plan: replacing (8) Hypokalemia Assessment & Plan: replacing Admission Dx sepsis due to pneumonia acute hypoxic respiratory failure COPD exacerbation. Clinical Quality Measures Admission Status Admission Dx sepsis due to pneumonia acute hypoxic respiratory failure COPD exacerbation. EBENEZER FLANAGAN MD July 14, 2020 10:30
[2020-07-14] MEDS: ENOXAPARIN 40 MG/0.4 ML (LOVENOX) SYR SQ SCH (12:04)
[2020-07-14] MEDS: HYDROcodone/APAP 5 MG/325 MG (LORTAB) TAB PO PRN (20:11)
[2020-07-15] MEDS: LACTATED RINGERS 1,000 ML IV SCH ×3 (02:04→22:28)
[2020-07-15] MEDS: RT-ALBUTEROL/IPRATROPIUM 3 ML (DUONEB) VIAL INH SCH ×6 (02:22→21:51)
[2020-07-15] MEDS: CEFEPIME 1,000 MG/SWFI 10 ML IV PUSH IV SCH ×8 (02:24→20:09)
[2020-07-15 02:53] LABS: BASOPHILS # (AUTO) 0.1 10^3/uL (0.0-0.1); BASOPHILS % (AUTO) 0 % (0-10); EOSINOPHILS % (AUTO) 0 % (0-10); HEMATOCRIT 27 % (35-52); HEMOGLOBIN 8.3 g/dL (11.5-16.0); LYMPHOCYTES # (AUTO) 0.4 10^3/uL (1.0-4.0); LYMPHOCYTES % (AUTO) 1 % (12-44); MEAN CORPUSCULAR HEMOGLOBIN 25 pg (25-34); MEAN CORPUSCULAR HGB CONC 31 g/dL (32-36); MEAN CORPUSCULAR VOLUME 82 fL (80-99); MEAN PLATELET VOLUME 11.3 fL (9.0-12.2); MONOCYTES # (AUTO) 0.7 10^3/uL (0.0-1.0); MONOCYTES % (AUTO) 2 % (0-12); NEUTROPHILS # (AUTO) 30.2 10^3/uL (1.8-7.8); NEUTROPHILS % (AUTO) 95 % (42-75); PLATELET COUNT 420 10^3/uL (130-400)
[2020-07-15 02:56] LABS: WHITE BLOOD COUNT 31.7 10^3/uL (4.3-11.0)
[2020-07-15 03:04] LABS: POTASSIUM 3.6 MMOL/L (3.6-5.0)
[2020-07-15 03:06] LABS: CALCIUM 8.8 MG/DL (8.5-10.1)
[2020-07-15 03:10] LABS: CREATININE SERUM 0.99 MG/DL (0.60-1.30); PHOSPHORUS 1.6 MG/DL (2.3-4.7)
[2020-07-15 03:13] LABS: MAGNESIUM 1.7 MG/DL (1.6-2.4)
[2020-07-15 03:41] LABS: BAND NEUTROPHILS 6 %; LYMPHOCYTES % (MANUAL) 1 %; MONOCYTES % (MANUAL) 2 %; NEUTROPHILS % (MANUAL) 91 %; RBC MORPH NORMAL
[2020-07-15] MEDS: MAGNESIUM 1 GM/100 ML IVPB 100 ML IV SCH ×3 (04:05→05:17)
[2020-07-15] MEDS: KCL 20 MEQ TAB (K-DUR) PO SCH (04:05)
[2020-07-15] MEDS: POTASSIUM CL 10MEQ/50ML IVPB 50 ML IV SCH ×3 (04:05→05:58)
[2020-07-15] MEDS: methylPREDNISolone 40 MG/ML (Solu-MEDROL) VIAL IV SCH ×4 (04:26→22:27)
[2020-07-15] MEDS: inSUlin ASPART (NovoLOG) 1 UNIT/0.01 ML (CHARGE PER UNIT) SC SCH ×4 (05:27→20:09)
[2020-07-15] MEDS: HYDROcodone/APAP 5 MG/325 MG (LORTAB) TAB PO PRN (07:27)
[2020-07-15] MEDS: ATENOLOL 50 MG (TENORMIN) TAB PO SCH (07:28)
[2020-07-15] MEDS: SERTRALINE 100 MG (ZOLOFT) TAB PO SCH (07:28)
[2020-07-15] MEDS: ENOXAPARIN 40 MG/0.4 ML (LOVENOX) SYR SQ SCH (07:28)
--- NOTE | 2020-07-15 07:39 | Diagnostic Imaging Report ---
CHEST 1 VIEW, AP/PA ONLY Indication: Dyspnea. Comparison: 07/14/2020 Findings: Heterogeneous opacities throughout the left lung and right lung base have not substantially changed. Small to moderate left pleural effusion similar. No pneumothorax. Stable cardiac silhouette. Impression: 1. No change in bilateral pulmonary opacities and small to moderate left pleural effusion. Dictated by: Dictated on workstation # [id number]
--- NOTE | 2020-07-15 07:49 | Progress Note - Hospitalist ---
Subjective HPI/CC On Admission Date Seen by Provider: Jul 15, 2020 Time Seen by Provider: 07:44 Subjective/Events-last exam Pt reports feeling better today. States breathing is easier. No specific complaints to me but did request resuming her ativan. She states she only takes a "tiny dose" of 2mg 1-2x per day. Discussed with her that that is not a small dose and I will resume her ativan but not at that dose. She is agreeable to this. I also informed her that it may be worthwhile to look into [place] for continued oxygen weaning. She then tells me she doesn't have any money and that she doubts she will be able to go. I informed her my job is to give her my besxt medical recommendations regardless of her insurance status and if it's not feasible for her then we look for another option. She requests Ilana Sumner who she has known for years to visit her for her social work needs. Focused Exam Lactate Level 07/13/20 12:35: Lactic Acid Level 1.46 07/13/20 16:27: Lactic Acid Level 1.28 Objective Exam Vital Signs Vital Signs Date Time Temp Pulse Resp B/P (MAP) Pulse Ox O2 Delivery O2 Flow Rate FiO2 07/15/20 08:00 37.0 07/15/20 06:44 93 Vapotherm 25.00 60 07/15/20 06:00 111 17 149/71 (85) Capillary Refill : Greater Than 3 Seconds General Appearance: No Apparent Distress, Anxious, Chronically ill Respiratory: No Accessory Muscle Use; No Crackles; Decreased Breath Sounds, Other (on Vapotherm ) Cardiovascular: Regular Rate, Rhythm, No Murmur Extremity: Pedal Edema (trace), Other (onychomyocisis noted) Neurologic/Psychiatric: Alert, Oriented x3 Results/Procedures Lab Laboratory Tests 07/15/20 02:42 Patient resulted labs reviewed. Assessment/Plan Assessment and Plan Assess & Plan/Chief Complaint Acute hypoxic respiratory failure Pneumonia COPD Continue on steroids Continue abx Leukocytosis up today, likely from steroids- no other signs of worsenign infection so will monitor for now TeleICU consulted, appreciate recs Contineu Vapotherm wean as able [place] referral HTN HLD DMII Continue home meds when med rec done Anxiety Continue home Zoloft Resume lower dose Ativan DVT ppx: Lovenox Diagnosis/Problems Diagnosis/Problems (1) Acute respiratory failure with hypoxia (2) HTN (hypertension) Qualifiers: Hypertension type: essential hypertension Qualified Codes: I10 - Essential (primary) hypertension (3) DMII (diabetes mellitus, type 2) (4) Hypokalemia (5) Hypomagnesemia (6) COPD exacerbation Status: Acute (7) Severe sepsis Status: Acute (8) Pneumonia Status: Acute Qualifiers: Pneumonia type: due to unspecified organism Laterality: bilateral Lung location: lower lobe of lung Qualified Codes: J18.9 - Pneumonia, unspecified organism IDANIA WHITAKER MD Jul 15, 2020 07:49
[2020-07-15] MEDS ORDERED: LOSA25TA41 PO (15:23)
[2020-07-15] MEDS ORDERED: ASPI-1238 PO (15:23)
[2020-07-15] MEDS ORDERED: FURO20TA4 PO (15:23)
[2020-07-15] MEDS ORDERED: ALB0.5V INH (15:23)
[2020-07-15] MEDS ORDERED: METF-478 PO (15:23)
[2020-07-15] MEDS ORDERED: SIMV20TA26 PO (15:23)
[2020-07-15] MEDS ORDERED: LORA-405 PO (15:23)
[2020-07-15] MEDS ORDERED: ATEN50TA PO (15:23)
[2020-07-15] MEDS: ONDANSETRON 4 MG/2 ML (SDV) Z0FRAN IV PRN (19:40)
[2020-07-15] MEDS: FAMOTIDINE 20 MG (PEPCID) TABLET PO SCH (20:09)
[2020-07-15] MEDS: LORazepam 0.5 MG (ATIVAN) TABLET PO PRN (20:09)
[2020-07-16] MEDS: RT-ALBUTEROL/IPRATROPIUM 3 ML (DUONEB) VIAL INH SCH ×5 (02:04→22:10)
[2020-07-16] MEDS: CEFEPIME 1,000 MG/SWFI 10 ML IV PUSH IV SCH ×8 (02:12→21:54)
[2020-07-16 02:59] LABS: BASOPHILS % (AUTO) 0 % (0-10); EOSINOPHILS % (AUTO) 0 % (0-10); HEMATOCRIT 29 % (35-52); HEMOGLOBIN 8.6 g/dL (11.5-16.0); LYMPHOCYTES # (AUTO) 0.3 10^3/uL (1.0-4.0); LYMPHOCYTES % (AUTO) 1 % (12-44); MEAN CORPUSCULAR HEMOGLOBIN 25 pg (25-34); MEAN CORPUSCULAR HGB CONC 30 g/dL (32-36); MEAN CORPUSCULAR VOLUME 84 fL (80-99); MONOCYTES # (AUTO) 0.8 10^3/uL (0.0-1.0); MONOCYTES % (AUTO) 3 % (0-12); NEUTROPHILS # (AUTO) 26.2 10^3/uL (1.8-7.8); NEUTROPHILS % (AUTO) 94 % (42-75); PLATELET COUNT 421 10^3/uL (130-400); WHITE BLOOD COUNT 27.8 10^3/uL (4.3-11.0)
[2020-07-16 03:14] LABS: POTASSIUM 4.5 MMOL/L (3.6-5.0)
[2020-07-16 03:15] LABS: CALCIUM 8.7 MG/DL (8.5-10.1)
[2020-07-16 03:19] LABS: CREATININE SERUM 0.94 MG/DL (0.60-1.30); PHOSPHORUS 2.5 MG/DL (2.3-4.7)
[2020-07-16 03:21] LABS: MAGNESIUM 2.1 MG/DL (1.6-2.4)
[2020-07-16] MEDS: POTASSIUM CL 10MEQ/50ML IVPB 50 ML IV SCH (03:59)
[2020-07-16] MEDS: MAGNESIUM 1 GM/100 ML IVPB 100 ML IV SCH (04:00)
[2020-07-16] MEDS: KCL 20 MEQ TAB (K-DUR) PO SCH (04:00)
[2020-07-16] MEDS: ONDANSETRON 4 MG/2 ML (SDV) Z0FRAN IV PRN ×2 (04:46→16:24)
[2020-07-16] MEDS: inSUlin ASPART (NovoLOG) 1 UNIT/0.01 ML (CHARGE PER UNIT) SC SCH ×4 (05:35→21:54)
[2020-07-16] MEDS: methylPREDNISolone 40 MG/ML (Solu-MEDROL) VIAL IV SCH ×4 (05:35→21:54)
--- NOTE | 2020-07-16 07:55 | Progress Note - Hospitalist ---
Subjective HPI/CC On Admission Date Seen by Provider: Jul 16, 2020 Time Seen by Provider: 07:49 Subjective/Events-last exam Pt very confused this morning. Had pulled oxygen off completely and desatted to the 70s. Now on Vapotherm 100% fiO2. She is asking for a pill to kill her. She has no specific complaints other than being nauseated. She denies being SOB. When asked why she wants to she states "It's my choice. If I want to I can ." Focused Exam Lactate Level Objective Exam Vital Signs Vital Signs Date Time Temp Pulse Resp B/P (MAP) Pulse Ox O2 Delivery O2 Flow Rate FiO2 07/17/20 12:07 37.0 07/17/20 12:00 95 Vapotherm 25.00 90 07/17/20 11:00 86 149/63 (91) 07/16/20 17:00 71 Capillary Refill : Greater Than 3 Seconds General Appearance: Anxious, Chronically ill Respiratory: Decreased Breath Sounds, Other (on Vapotherm) Cardiovascular: Regular Rate, Rhythm, No Murmur Gastrointestinal: Normal Bowel Sounds, Soft Neurologic/Psychiatric: Alert, Oriented x3 Results/Procedures Lab Laboratory Tests 07/17/20 02:50 Patient resulted labs reviewed. Assessment/Plan Assessment and Plan Assess & Plan/Chief Complaint Acute hypoxic respiratory failure Pneumonia COPD Continue on steroids Continue abx Leukocytosis up today, likely from steroids- no other signs of worsening infection so will monitor for now TeleICU consulted, appreciate recs Continue Vapotherm wean as able [place] referral, accepted but not sure if patient is willing now Palliative care consulted, appreciate recs Requesting euthanasia at this time, discussed with her that this is illegal and yesterday she had actually asked to be full code for a short period of time Desire seems to be related to ICU psychosis instead of actually desire for end of life measures, appreciate palliative care consult and will attempt to connect with granddaughter again who can help with plan of care HTN HLD DMII BP within goal Anxiety Continue home Zoloft Continue Ativan Add haldol prn for agitation DVT ppx: Lovenox retruned to room at 1045 with Casper, palliative care RN, Jaspreet, [employer] Worker, ICUIlana Hope, her granddaughter, daughter, and friend Maria Alejandra. Patient was very agitated and stated we were all here only because of insurance. She seems to perserverate and cannot focus on current issues. She recounts multiple times about how she had to move in with family for care and why she called the ambulance but when asked to concentrate on events from today and going forward she could not process and focus on that information. She even at times discussed conspiracy theories regarding the Holocaust. She was reminded multiple times that everyone gathered here today to talk about her wishes and make sure we were acting in accordance with her wishes after she stated to me and the ui software developer and called her family telling them she was ready to . She is unsure in which direction she wants to proceed and seems very distrusting of medical staff here. She asks multiples for an exact timeframe before she will be better or when she would have to go to [place]. I informed her every time that there is not an exact timeframe for her progress and that my medical recommendation is unchanged in that she would benefit from oxygen weaning at an LTACH given she has had increasing needs here. Her granddaughter attempted to help focus her attention to no avail. At this point I left the room to allow for family to continue to discuss plan of care going forward but reminded Dana that we are trying our best to follow her wishes and not pressure her into a decision but we need some guidance. Diagnosis/Problems Diagnosis/Problems (1) Acute respiratory failure with hypoxia (2) HTN (hypertension) Qualifiers: Hypertension type: essential hypertension Qualified Codes: I10 - Essential (primary) hypertension (3) DMII (diabetes mellitus, type 2) (4) Hypokalemia (5) Hypomagnesemia (6) COPD exacerbation Status: Acute (7) Severe sepsis Status: Acute (8) Pneumonia Status: Acute Qualifiers: Pneumonia type: due to unspecified organism Laterality: bilateral Lung location: lower lobe of lung Qualified Codes: J18.9 - Pneumonia, unspecified organism IDANIA WHITAKER MD Jul 16, 2020 07:55
[2020-07-16] MEDS: ATENOLOL 50 MG (TENORMIN) TAB PO SCH ×2 (07:58→09:17)
[2020-07-16] MEDS: FAMOTIDINE 20 MG (PEPCID) TABLET PO SCH (07:58)
[2020-07-16] MEDS: LORazepam 0.5 MG (ATIVAN) TABLET PO PRN ×2 (07:58→12:28)
[2020-07-16] MEDS: LACTATED RINGERS 1,000 ML IV SCH (07:58)
[2020-07-16] MEDS: SERTRALINE 100 MG (ZOLOFT) TAB PO SCH (08:09)
--- NOTE | 2020-07-16 08:33 | Diagnostic Imaging Report ---
INDICATION: Short of air. FINDINGS: The portable chest shows cardiomegaly with mild pulmonary venous distention. The infiltrates are stable compared to the 07/15/2020 study. There may be a small effusion. There is no pneumothorax. IMPRESSION: Stable chest. Dictated by: Dictated on workstation # [id number]
--- NOTE | 2020-07-16 10:35 | Pulmonary Progress Note ---
Subjective Date Seen by a Provider: Jul 15, 2020 Time Seen by a Provider: 09:12 Sepsis Event Evaluation Height, Weight, BMI Height: '" Weight: lbs. oz. kg; 29.75 BMI Method:Stated Focused Exam Lactate Level 07/13/20 12:35: Lactic Acid Level 1.46 07/13/20 16:27: Lactic Acid Level 1.28 Exam Exam Vital Signs Date Time Temp Pulse Resp B/P (MAP) Pulse Ox O2 Delivery O2 Flow Rate FiO2 07/16/20 10:00 105 15 161/79 (106) 96 Vapotherm 25.00 100.00 07/16/20 09:00 115 23 145/89 (107) 94 Vapotherm 25.00 100.00 07/16/20 08:00 111 18 145/110 (122) 97 Vapotherm 25.00 100.00 07/16/20 08:00 37.4 07/16/20 07:40 Vapotherm 25.00 100.00 07/16/20 07:35 112 07/16/20 07:30 94 Vapotherm 30.00 100 07/16/20 07:28 76 Room Air 07/16/20 07:00 46 169/89 (115) 93 Vapotherm 25.00 65.00 07/16/20 06:00 101 141/64 (90) 94 Vapotherm 25.00 65.00 07/16/20 05:00 110 25 166/86 (105) 93 Vapotherm 25.00 65.00 07/16/20 04:29 36.8 07/16/20 04:00 87 14 114/55 (78) 92 Vapotherm 25.00 65.00 07/16/20 03:58 94 Vapotherm 30.00 80 07/16/20 03:00 101 12 160/72 (88) 94 Vapotherm 25.00 65.00 07/16/20 02:04 92 Vapotherm 30.00 65 07/16/20 02:00 94 153/77 (104) 92 Vapotherm 25.00 65.00 07/16/20 01:00 88 14 130/62 (87) 93 Vapotherm 25.00 65.00 07/16/20 01:00 88 07/16/20 00:11 Vapotherm 25.00 65.00 07/16/20 00:00 106 16 172/87 (115) Vapotherm 30.00 70.00 07/15/20 23:56 94 Vapotherm 30.00 80 07/15/20 23:56 37.0 07/15/20 23:00 97 15 163/113 (127) 92 Vapotherm 30.00 70.00 07/15/20 22:00 87 10 144/63 (91) 95 Vapotherm 30.00 70.00 07/15/20 21:51 95 Vapotherm 30.00 70 07/15/20 21:00 96 16 134/64 (89) 94 Vapotherm 30.00 70.00 07/15/20 20:38 94 Vapotherm 30.00 80 07/15/20 20:13 Vapotherm 30.00 70.00 07/15/20 20:00 101 15 148/118 (125) 93 Vapotherm 30.00 80.00 07/15/20 19:40 36.5 Vapotherm 30.00 80.00 07/15/20 19:00 113 07/15/20 19:00 113 13 181/100 (111) 91 Vapotherm 25.00 60.00 07/15/20 18:49 91 Vapotherm 25.00 70 07/15/20 18:00 98 36 181/115 (137) 97 Vapotherm 25.00 60.00 07/15/20 17:00 101 24 174/90 (118) 92 Vapotherm 25.00 60.00 07/15/20 16:00 94 Vapotherm 25.00 80 07/15/20 16:00 36.8 07/15/20 16:00 17 166/82 (110) 91 Vapotherm 25.00 60.00 07/15/20 15:00 8 171/83 (112) 92 Vapotherm 25.00 60.00 07/15/20 14:34 91 Vapotherm 25.00 70 07/15/20 14:00 93 16 152/84 (106) 93 Vapotherm 25.00 60.00 07/15/20 13:00 97 31 161/79 (106) 92 Vapotherm 25.00 60.00 07/15/20 12:59 86 07/15/20 12:00 94 Vapotherm 25.00 80 07/15/20 12:00 37.1 07/15/20 12:00 104 16 163/81 (108) 92 Vapotherm 25.00 60.00 07/15/20 11:00 101 16 131/113 (119) 88 Vapotherm 25.00 60.00 07/15/20 10:39 93 Vapotherm 25.00 70 I & O 07/16/20 07:00 Intake Total 900 ml Output Total 740 ml Balance 160 ml Height & Weight Height: '" Weight: lbs. oz. kg; 29.75 BMI Method:Stated General Appearance: Anxious, Chronically ill HEENT: PERRL/EOMI (left eyelid droopy, white/clouding of left eye.) Neck: Non Tender, Supple Respiratory: Decreased Breath Sounds, Other (on Vapotherm) Cardiovascular: Regular Rate, Rhythm, No Murmur Capillary Refill: Greater Than 3 Seconds Gastrointestinal: normal bowel sounds, non tender, soft Extremity: Pedal Edema (trace), Other (onychomyocisis noted) Neurologic/Psychiatric: Alert, Oriented x3 Skin: Warm/Dry Lymphatic: No Adenopathy Results Lab Laboratory Tests 07/15/20 02:42 07/16/20 02:46 Assessment/Plan Assessment/Plan Available chart/ vitals / labs / Images reviewed Video assessment done using teleICU camera Discussed with RN Events overnight : none Afebrile hemodynanically stable, no pressors, I/O = neg 900 Drips: none Consultants: none Hospital course: (07/13) 80f admitted for Sepsis pneumonia and COPD exacerbation, VAPOTHERM 07/15 cxr - bilateral pulmonary opacities and small to moderate left pleural effusion. A/P Acute hypoxic respiratory failure - Vapotherm , try to wean AECOPD - steroids SM 40 q 6 - cont -nebs Leukocytosis, to 30 on 07/15 from 15 - suspected steroids effect , not new infection Pneumonia, suspected -on ABX for Aerococcus in urine , cefepime 07/13 - follow - blood cx 07/13 neg chronic tachycardia - atenolol started 07/15 HTN DMII -home meds Anxiety - Zoloft, weaning down Ativan by Dr Ji Still has high oxygen needs, will elave on vapotherm, continue abx and steroids, albuterol CXR shows bilateral infiltrates, COVID neg has chronic tachycardia, if does up will add beta suellen Lines : Maxwell: Nutrition: po DVT proph: lovenox 40 - on steroids - H2bl Plans in collaboration with bedside consultants and IM MDs. Discussed with Dr. Discussed with RN to reach out if any questions or concerns A total of 25 minutes of critical care time was devoted to this patient today, required to treat and/or prevent further deterioration of critical care condition ( as above ) . BENJY FARR MD Jul 16, 2020 10:35
[2020-07-16] MEDS: ENOXAPARIN 40 MG/0.4 ML (LOVENOX) SYR SQ SCH (15:04)
[2020-07-16] MEDS: MICONAZOLE 2% POWDER (DESENEX AF) 90 GM TOP SCH ×2 (16:23→21:55)
[2020-07-16] MEDS: HYDROcodone/APAP 5 MG/325 MG (LORTAB) TAB PO PRN (16:24)
[2020-07-17] MEDS: RT-ALBUTEROL/IPRATROPIUM 3 ML (DUONEB) VIAL INH SCH ×6 (02:43→22:09)
[2020-07-17] MEDS: LORazepam 0.5 MG (ATIVAN) TABLET PO PRN ×3 (02:44→21:01)
[2020-07-17] MEDS: CEFEPIME 1,000 MG/SWFI 10 ML IV PUSH IV SCH ×8 (02:57→21:04)
[2020-07-17 03:04] LABS: BASOPHILS % (AUTO) 0 % (0-10); EOSINOPHILS % (AUTO) 0 % (0-10); HEMATOCRIT 30 % (35-52); HEMOGLOBIN 8.6 g/dL (11.5-16.0); LYMPHOCYTES # (AUTO) 0.3 10^3/uL (1.0-4.0); LYMPHOCYTES % (AUTO) 1 % (12-44); MEAN CORPUSCULAR HEMOGLOBIN 25 pg (25-34); MEAN CORPUSCULAR HGB CONC 29 g/dL (32-36); MEAN CORPUSCULAR VOLUME 85 fL (80-99); MEAN PLATELET VOLUME 11.2 fL (9.0-12.2); MONOCYTES # (AUTO) 0.5 10^3/uL (0.0-1.0); MONOCYTES % (AUTO) 3 % (0-12); NEUTROPHILS # (AUTO) 19.4 10^3/uL (1.8-7.8); NEUTROPHILS % (AUTO) 95 % (42-75); PLATELET COUNT 308 10^3/uL (130-400); WHITE BLOOD COUNT 20.4 10^3/uL (4.3-11.0)
[2020-07-17 03:16] LABS: POTASSIUM 4.9 MMOL/L (3.6-5.0)
[2020-07-17 03:17] LABS: CALCIUM 8.9 MG/DL (8.5-10.1)
[2020-07-17 03:21] LABS: PHOSPHORUS 2.7 MG/DL (2.3-4.7)
[2020-07-17 03:22] LABS: CREATININE SERUM 0.9 MG/DL (0.60-1.30)
[2020-07-17 03:24] LABS: MAGNESIUM 2.1 MG/DL (1.6-2.4)
[2020-07-17] MEDS: methylPREDNISolone 40 MG/ML (Solu-MEDROL) VIAL IV SCH ×2 (05:23→10:33)
[2020-07-17] MEDS: inSUlin ASPART (NovoLOG) 1 UNIT/0.01 ML (CHARGE PER UNIT) SC SCH ×4 (05:30→21:04)
[2020-07-17] MEDS: MAGNESIUM 1 GM/100 ML IVPB 100 ML IV SCH (05:30)
[2020-07-17] MEDS: POTASSIUM CL 10MEQ/50ML IVPB 50 ML IV SCH (05:30)
[2020-07-17] MEDS: KCL 20 MEQ TAB (K-DUR) PO SCH (05:30)
[2020-07-17] MEDS: FAMOTIDINE 20 MG (PEPCID) TABLET PO SCH (08:28)
[2020-07-17] MEDS: SERTRALINE 100 MG (ZOLOFT) TAB PO SCH (08:28)
[2020-07-17] MEDS: ATENOLOL 50 MG (TENORMIN) TAB PO SCH (08:28)
[2020-07-17] MEDS: MICONAZOLE 2% POWDER (DESENEX AF) 90 GM TOP SCH ×2 (08:42→21:04)
[2020-07-17] MEDS: risperiDONE 0.5 MG (RisperDAL) TABLET PO SCH ×2 (09:29→21:02)
[2020-07-17] MEDS: HYDROcodone/APAP 5 MG/325 MG (LORTAB) TAB PO PRN (10:32)
[2020-07-17] MEDS: ENOXAPARIN 40 MG/0.4 ML (LOVENOX) SYR SQ SCH (12:40)
--- NOTE | 2020-07-17 13:03 | Pulmonary Progress Note ---
Subjective Date Seen by a Provider: Jul 17, 2020 Time Seen by a Provider: 13:02 Sepsis Event Evaluation Height, Weight, BMI Height: '" Weight: lbs. oz. kg; 29.75 BMI Method:Stated Exam Exam Vital Signs Date Time Temp Pulse Resp B/P (MAP) Pulse Ox O2 Delivery O2 Flow Rate FiO2 07/17/20 12:07 37.0 07/17/20 12:00 95 Vapotherm 25.00 90 07/17/20 11:00 86 149/63 (91) 94 Vapotherm 25.00 90.00 07/17/20 10:53 93 Vapotherm 25.00 90 07/17/20 10:00 96 155/82 (106) 93 Vapotherm 25.00 90.00 07/17/20 09:00 95 148/68 (94) 93 Vapotherm 25.00 90.00 07/17/20 08:07 37.2 07/17/20 08:00 93 Vapotherm 25.00 90 07/17/20 08:00 113 154/114 (127) 92 Vapotherm 25.00 90.00 07/17/20 07:00 112 170/88 (115) 92 Vapotherm 25.00 90.00 07/17/20 07:00 111 07/17/20 06:46 94 Vapotherm 25.00 90 07/17/20 06:00 96 165/68 (100) 93 Vapotherm 25.00 90.00 07/17/20 05:00 78 129/58 (81) 93 Vapotherm 25.00 90.00 07/17/20 04:00 93 155/69 (97) 92 Vapotherm 25.00 90.00 07/17/20 04:00 36.8 07/17/20 03:48 93 Vapotherm 25.00 90 07/17/20 03:00 98 170/77 (108) 94 Vapotherm 25.00 90.00 07/17/20 02:46 93 Vapotherm 25.00 90 07/17/20 02:00 80 135/59 (84) 94 Vapotherm 25.00 90.00 07/17/20 01:00 86 144/66 (92) 94 Vapotherm 25.00 90.00 07/17/20 01:00 91 07/17/20 00:24 93 Vapotherm 25.00 90 07/17/20 00:00 96 125/59 (81) 94 Vapotherm 25.00 90.00 07/17/20 00:00 36.5 07/16/20 23:00 87 126/56 (79) 92 Vapotherm 25.00 90.00 07/16/20 22:10 95 Vapotherm 25.00 90 07/16/20 22:00 101 166/75 (105) 94 Vapotherm 25.00 90.00 07/16/20 21:57 Vapotherm 25.00 90.00 07/16/20 21:00 89 130/60 (83) 95 Vapotherm 25.00 90.00 07/16/20 20:00 37.0 07/16/20 20:00 92 143/63 (89) 95 Vapotherm 25.00 90.00 07/16/20 20:00 95 Vapotherm 25.00 100 07/16/20 19:00 122 93 Vapotherm 25.00 90.00 07/16/20 19:00 110 07/16/20 18:36 96 Vapotherm 25.00 100 07/16/20 18:00 98 158/62 (94) 96 Vapotherm 25.00 90.00 07/16/20 17:00 115 71 187/85 (119) 96 Vapotherm 25.00 90.00 07/16/20 16:30 94 Vapotherm 25.00 100 07/16/20 16:00 37.0 07/16/20 16:00 96 129/102 (111) 98 Vapotherm 25.00 90.00 07/16/20 15:00 90 13 164/77 (106) 90 Vapotherm 25.00 90.00 07/16/20 14:40 Vapotherm 25.00 90.00 07/16/20 14:38 99 Vapotherm 25.00 100 07/16/20 14:00 108 12 153/68 (96) 98 Vapotherm 25.00 100.00 I & O 07/17/20 07:00 Intake Total 1200 ml Output Total 650 ml Balance 550 ml Height & Weight Height: '" Weight: lbs. oz. kg; 29.75 BMI Method:Stated General Appearance: Anxious, Chronically ill HEENT: PERRL/EOMI (left eyelid droopy, white/clouding of left eye.) Neck: Non Tender, Supple Respiratory: Decreased Breath Sounds, Other (on Vapotherm) Cardiovascular: Regular Rate, Rhythm, No Murmur Capillary Refill: Greater Than 3 Seconds Gastrointestinal: normal bowel sounds, non tender, soft Extremity: Pedal Edema (trace), Other (onychomyocisis noted) Neurologic/Psychiatric: Alert, Oriented x3 Skin: Warm/Dry Lymphatic: No Adenopathy Results Lab Laboratory Tests 07/16/20 02:46 07/17/20 02:50 Assessment/Plan Assessment/Plan Available chart/ vitals / labs / Images reviewed Video assessment done using teleICU camera Discussed with RN Events overnight : none, was confused /agitated am - did not het cxr , appropriate now aaox3 Afebrile hemodynanically stable, no pressors, I/O = positive 600 Drips: none Consultants: none Hospital course: (07/13) 80f admitted for Sepsis pneumonia and COPD exacerbation, VAPOTHERM 07/17- still on vapotherm 25L 90% 07/15 cxr - bilateral pulmonary opacities and small to moderate left pleural effusion. A/P Acute hypoxic respiratory failure - Vapotherm , try to wean - gentle diuresiswith Diamox - can not do IS, flatter valve AECOPD - steroids SM 40 q 6 - cont today -nebs Leukocytosis, to 30 on 07/15 from 15 - trending down now - suspected steroids effect , not new infection Pneumonia, suspected -on ABX for Aerococcus in urine , cefepime 07/13 - follow cxr am, WBC trending down - blood cx 07/13 neg - cxr tomorrow chronic tachycardia - atenolol started 07/15 - HR ? HTN DMII - meds as per PCP Intermittent confusion/ anxiety - on resperidol, Zoloft, weaning down Ativan by Dr Ji Lines : peripheral Maxwell: 07/13 - Nutrition: po, to advance DVT proph: lovenox 40 SUP - on steroids - H2bl Plans in collaboration with bedside consultants and IM MDs. Discussed with RN to reach out if any questions or concerns A total of 25 minutes of critical care time was devoted to this patient today, required to treat and/or prevent further deterioration of critical care condition ( as above ) . BENJY FARR MD Jul 17, 2020 13:03
[2020-07-17] MEDS: acetaZOLAMIDE INJ 500 MG/5 ML (DIAMOX) VIAL IV SCH ×2 (13:22→21:01)
--- NOTE | 2020-07-17 13:58 | Progress Note - Hospitalist ---
Subjective HPI/CC On Admission Date Seen by Provider: Jul 17, 2020 Time Seen by Provider: 07:45 Subjective/Events-last exam Pt repors feeling less anxious today. No specific complaints at first but when we brought up her oxygen level she reverts to her previous thoughts of being pressured to go to the [facility] by the government because of Medicare spending. She then asks me again to give her a pill to let her . She also asks about getting back done to [facility]. She perservates for a while on previous issues (her time working at the [employer], not getting medicines despite her refusing them, and again brings up the Holocaust). She at times got very frustrated with me and was shaking her finger at me and even made a fist at one point. I informed her that we would not be able to continue to discuss past events and need to focus on moving forward. She became more agitated with that and yelled that I was pressuring her. I then excused myself from the room. Objective Exam Vital Signs Vital Signs Date Time Temp Pulse Resp B/P (MAP) Pulse Ox O2 Delivery O2 Flow Rate FiO2 07/17/20 12:07 37.0 07/17/20 12:00 95 Vapotherm 25.00 90 07/17/20 11:00 86 149/63 (91) 07/16/20 17:00 71 Capillary Refill : Greater Than 3 Seconds General Appearance: No Apparent Distress, Anxious, Chronically ill Respiratory: Decreased Breath Sounds, Other (on vapotherm) Cardiovascular: Regular Rate, Rhythm, No Murmur Gastrointestinal: Normal Bowel Sounds, Soft Neurologic/Psychiatric: Alert, Disoriented Results/Procedures Lab Laboratory Tests 07/17/20 02:50 Patient resulted labs reviewed. Assessment/Plan Assessment and Plan Assess & Plan/Chief Complaint Acute hypoxic respiratory failure Pneumonia COPD Continue abx Leukocytosis trending down Change to oral steroids TeleICU consulted, appreciate recs Continue Vapotherm wean as able [facility] referral, accepted but give delusions will defer transfer for now Palliative care consulted, appreciate recs HTN HLD DMII BP within goal Anxiety Paranoia and delusions Continue home Zoloft Continue Ativan Haldol prn Rispderal scheduled added I do not believe patient has the capacity to make informed decisions, manager social services consulted, guardianship process initiated DVT ppx: Lovenox Diagnosis/Problems Diagnosis/Problems (1) Acute respiratory failure with hypoxia (2) HTN (hypertension) Qualifiers: Hypertension type: essential hypertension Qualified Codes: I10 - Essential (primary) hypertension (3) DMII (diabetes mellitus, type 2) (4) Hypokalemia (5) Hypomagnesemia (6) COPD exacerbation Status: Acute (7) Severe sepsis Status: Acute (8) Pneumonia Status: Acute Qualifiers: Pneumonia type: due to unspecified organism Laterality: bilateral Lung location: lower lobe of lung Qualified Codes: J18.9 - Pneumonia, unspecified organism IDANIA WHITAKER MD Jul 17, 2020 13:58
[2020-07-18] MEDS: RT-ALBUTEROL/IPRATROPIUM 3 ML (DUONEB) VIAL INH SCH ×4 (02:15→14:50)
[2020-07-18] MEDS: CEFEPIME 1,000 MG/SWFI 10 ML IV PUSH IV SCH ×4 (02:53→08:01)
[2020-07-18 04:16] LABS: BASOPHILS % (AUTO) 0 % (0-10); EOSINOPHILS % (AUTO) 0 % (0-10); HEMATOCRIT 31 % (35-52); HEMOGLOBIN 8.6 g/dL (11.5-16.0); LYMPHOCYTES # (AUTO) 0.6 10^3/uL (1.0-4.0); LYMPHOCYTES % (AUTO) 3 % (12-44); MEAN CORPUSCULAR HEMOGLOBIN 24 pg (25-34); MEAN CORPUSCULAR HGB CONC 28 g/dL (32-36); MEAN CORPUSCULAR VOLUME 87 fL (80-99); MEAN PLATELET VOLUME 11.5 fL (9.0-12.2); MONOCYTES # (AUTO) 1.3 10^3/uL (0.0-1.0); MONOCYTES % (AUTO) 7 % (0-12); NEUTROPHILS # (AUTO) 16.7 10^3/uL (1.8-7.8); NEUTROPHILS % (AUTO) 89 % (42-75); PLATELET COUNT 279 10^3/uL (130-400); WHITE BLOOD COUNT 18.8 10^3/uL (4.3-11.0)
[2020-07-18 04:28] LABS: CHLORIDE 96 MMOL/L (98-107); POTASSIUM 4.6 MMOL/L (3.6-5.0); SODIUM 138 MMOL/L (135-145)
[2020-07-18 04:30] LABS: GLUCOSE 152 MG/DL (70-105)
[2020-07-18 04:32] LABS: CARBON DIOXIDE 34 MMOL/L (21-32)
[2020-07-18 04:34] LABS: CREATININE SERUM 0.81 MG/DL (0.60-1.30); GFR ESTIMATED > 60; PHOSPHORUS 2.5 MG/DL (2.3-4.7)
[2020-07-18 04:35] LABS: BUN/CREATININE RATIO 36
[2020-07-18 04:36] LABS: MAGNESIUM 2.2 MG/DL (1.6-2.4)
[2020-07-18] MEDS: MAGNESIUM 1 GM/100 ML IVPB 100 ML IV SCH (05:46)
[2020-07-18] MEDS: inSUlin ASPART (NovoLOG) 1 UNIT/0.01 ML (CHARGE PER UNIT) SC SCH ×3 (05:46→16:22)
[2020-07-18] MEDS: POTASSIUM CL 10MEQ/50ML IVPB 50 ML IV SCH (05:46)
[2020-07-18] MEDS: KCL 20 MEQ TAB (K-DUR) PO SCH (05:46)
[2020-07-18] MEDS ORDERED: predniSONE 20 MG TAB PO SCH ×2 (07:00→09:00)
--- NOTE | 2020-07-18 07:53 | Diagnostic Imaging Report ---
Reason for examination: Followup hypoxia. Upright AP portable chest was obtained and compared to 07/16/2020. The cardiomediastinal silhouette is stable from the prior exam with left greater than right mixed infiltrates and probably a left pleural effusion and trace of right pleural effusion as well. Lung aeration is about the same on the left and appears to be improving in the right lower lobe. No pneumothorax or air-fluid level. Impression: 1. Left greater than right pulmonary mixed infiltrates with a left pleural effusion about the same on the left side today but improving in the right lower lobe. Continued followup is recommended. Dictated by: Dictated on workstation # [id number]
[2020-07-18] MEDS: FAMOTIDINE 20 MG (PEPCID) TABLET PO SCH (08:01)
[2020-07-18] MEDS: LORazepam 0.5 MG (ATIVAN) TABLET PO PRN (08:01)
[2020-07-18] MEDS: risperiDONE 0.5 MG (RisperDAL) TABLET PO SCH (08:01)
[2020-07-18] MEDS: SERTRALINE 100 MG (ZOLOFT) TAB PO SCH (08:01)
[2020-07-18] MEDS: ATENOLOL 50 MG (TENORMIN) TAB PO SCH (08:01)
--- NOTE | 2020-07-18 08:04 | Progress Note - Hospitalist ---
Subjective HPI/CC On Admission Date Seen by Provider: Jul 18, 2020 Time Seen by Provider: 07:54 Subjective/Events-last exam Pt reports feeling cold. She states she woke up in a good mood and happy and then remembered she didn't want to wake up and she wanted to and was no longer happy. She then states "I'm still here in your place and we're getting it cleaned up." She was unable to elaborate on what was being cleaned up. Objective Exam Vital Signs Vital Signs Date Time Temp Pulse Resp B/P (MAP) Pulse Ox O2 Delivery O2 Flow Rate FiO2 07/18/20 07:52 35.4 07/18/20 07:00 93 28 140/68 (92) 92 Vapotherm 25.00 90.00 07/18/20 03:43 90 Capillary Refill : Greater Than 3 Seconds General Appearance: No Apparent Distress, Anxious, Chronically ill Respiratory: Decreased Breath Sounds, Other (on Vapotherm) Cardiovascular: Regular Rate, Rhythm, No Murmur Gastrointestinal: Normal Bowel Sounds, Non Tender, Soft Neurologic/Psychiatric: Alert, Other (oriented to person and place only) Results/Procedures Lab Laboratory Tests 07/18/20 04:00 Patient resulted labs reviewed. Assessment/Plan Assessment and Plan Assess & Plan/Chief Complaint Acute hypoxic respiratory failure Pneumonia COPD Continue on steroids, changed to oral Continue abx Leukocytosis trending down TeleICU consulted, appreciate recs Continue Vapotherm wean as able [place] referral, accepted but I do not believe patient has capacity to make this decision Palliative care consulted, appreciate recs Continue to be disoriented and does not seem as if thought process is based in reality Guardianship being pursued HTN HLD DMII BP within goal Anxiety Continue home Zoloft Continue Ativan haldol prn for agitation Risperdal scheduled added DVT ppx: Lovenox Diagnosis/Problems Diagnosis/Problems (1) Acute respiratory failure with hypoxia (2) HTN (hypertension) Qualifiers: Hypertension type: essential hypertension Qualified Codes: I10 - Essential (primary) hypertension (3) DMII (diabetes mellitus, type 2) (4) Hypokalemia (5) Hypomagnesemia (6) COPD exacerbation Status: Acute (7) Severe sepsis Status: Acute (8) Pneumonia Status: Acute Qualifiers: Pneumonia type: due to unspecified organism Laterality: bilateral Lung location: lower lobe of lung Qualified Codes: J18.9 - Pneumonia, unspecified organism IDANIA WHITAKER MD Jul 18, 2020 08:03
[2020-07-18] MEDS: HYDROcodone/APAP 5 MG/325 MG (LORTAB) TAB PO PRN (08:08)
[2020-07-18] MEDS: MICONAZOLE 2% POWDER (DESENEX AF) 90 GM TOP SCH (11:13)
[2020-07-18] MEDS: ENOXAPARIN 40 MG/0.4 ML (LOVENOX) SYR SQ SCH (11:22)
[2020-07-18] MEDS ORDERED: acetaZOLAMIDE INJ 500 MG/5 ML (DIAMOX) VIAL IV SCH (11:28)
[2020-07-18] MEDS ORDERED: WATER (STERILE) FOR INJ 10 ML BTL IV SCH (11:30)
--- NOTE | 2020-07-18 11:30 | Pulmonary Progress Note ---
Subjective Date Seen by a Provider: Jul 18, 2020 Time Seen by a Provider: 11:30 Sepsis Event Evaluation Height, Weight, BMI Height: '" Weight: lbs. oz. kg; 29.75 BMI Method:Stated Exam Exam Vital Signs Date Time Temp Pulse Resp B/P (MAP) Pulse Ox O2 Delivery O2 Flow Rate FiO2 07/18/20 10:30 91 Vapotherm 25.00 95 07/18/20 10:00 84 28 106/52 (70) 91 Vapotherm 25.00 90.00 07/18/20 09:00 94 27 164/79 (107) 92 Vapotherm 25.00 90.00 07/18/20 08:00 96 19 151/70 (97) 91 Vapotherm 25.00 90.00 07/18/20 07:56 92 Vapotherm 25.00 07/18/20 07:52 35.4 07/18/20 07:22 92 Vapotherm 25.00 90 07/18/20 07:00 93 28 140/68 (92) 92 Vapotherm 25.00 90.00 07/18/20 07:00 93 07/18/20 06:00 96 29 136/68 (90) 93 Vapotherm 25.00 90.00 07/18/20 05:00 90 28 134/65 (88) 93 Vapotherm 25.00 90.00 07/18/20 04:00 93 28 135/56 (82) 92 Vapotherm 25.00 90.00 07/18/20 03:43 90 Vapotherm 25.00 90 07/18/20 03:00 87 28 134/58 (83) 92 Vapotherm 25.00 90.00 07/18/20 02:18 92 Vapotherm 25.00 90 07/18/20 02:00 73 28 119/54 (75) 94 Vapotherm 25.00 90.00 07/18/20 01:00 70 07/18/20 01:00 78 19 123/55 (77) 94 Vapotherm 25.00 90.00 07/18/20 00:00 90 Vapotherm 25.00 90 07/18/20 00:00 36.5 07/18/20 00:00 73 19 99/47 (64) 93 Vapotherm 25.00 90.00 07/17/20 23:00 72 24 104/51 (68) 93 Vapotherm 25.00 90.00 07/17/20 22:11 90 Vapotherm 25.00 07/17/20 22:00 75 28 125/55 (78) 92 Vapotherm 25.00 90.00 07/17/20 21:00 80 26 128/59 (82) 92 Vapotherm 25.00 90.00 07/17/20 20:33 90 Vapotherm 25.00 90 07/17/20 20:00 85 27 133/57 (82) 91 Vapotherm 25.00 90.00 07/17/20 19:30 36.8 07/17/20 19:01 90 Vapotherm 25.00 07/17/20 19:00 84 28 153/75 (101) 90 Vapotherm 25.00 90.00 07/17/20 19:00 90 07/17/20 18:00 28 104/42 (62) 90 Vapotherm 25.00 90.00 07/17/20 17:00 26 87/45 (59) 89 Vapotherm 25.00 90.00 07/17/20 16:00 95 Vapotherm 25.00 90 07/17/20 16:00 25 96/37 (56) 89 Vapotherm 25.00 90.00 07/17/20 15:49 36.7 07/17/20 15:00 20 132/66 (88) 92 Vapotherm 25.00 90.00 07/17/20 14:43 92 Vapotherm 25.00 90 07/17/20 14:00 81 146/70 (95) 92 Vapotherm 25.00 90.00 07/17/20 13:00 76 16 148/68 (94) 94 Vapotherm 25.00 90.00 07/17/20 13:00 80 07/17/20 12:07 37.0 07/17/20 12:00 79 7 147/69 (95) 93 Vapotherm 25.00 90.00 07/17/20 12:00 95 Vapotherm 25.00 90 I & O 07/18/20 07:00 Intake Total 1025 ml Output Total 1025 ml Balance 0 ml Height & Weight Height: '" Weight: lbs. oz. kg; 29.75 BMI Method:Stated General Appearance: No Apparent Distress, Anxious, Chronically ill HEENT: PERRL/EOMI (left eyelid droopy, white/clouding of left eye.) Neck: Non Tender, Supple Respiratory: Decreased Breath Sounds, Other (on Vapotherm) Cardiovascular: Regular Rate, Rhythm, No Murmur Capillary Refill: Greater Than 3 Seconds Gastrointestinal: normal bowel sounds, non tender, soft Extremity: Pedal Edema (trace), Other (onychomyocisis noted) Neurologic/Psychiatric: Alert, Other (oriented to person and place only) Skin: Warm/Dry Lymphatic: No Adenopathy Results Lab Laboratory Tests 07/17/20 02:50 07/18/20 04:00 Assessment/Plan Assessment/Plan Available chart/ vitals / labs / Images reviewed Video assessment done using teleICU camera Discussed with RN Events overnight : none Afebrile hemodynanically stable, no pressors, I/O = even Drips: none Consultants: none Hospital course: (07/13) 80f admitted for Sepsis pneumonia and COPD exacerbation, VAPOTHERM 07/17- still on vapotherm 25L 90% 07/18 - as per Dr Ji: starting process of obtaining state guardianship 07/18 - CT chest 07/15 cxr - bilateral pulmonary opacities and small to moderate left pleural effusion. 07/18- cxr - sligtly better 07/18 - CT chest A/P Acute hypoxic respiratory failure - Vapotherm , try to wean - gentle diuresis with Diamox started 07/17 - WILL TRY TODAY AGAIN 2 DOSES - can not do IS, flatter valve - WILL CHECK CT CHEST - ?LARGE EFFUSION VS EMPYEMA VS INFILTRATE AECOPD - steroids SM 40 q 6 - cchanged to PO 07/18 -nebs Leukocytosis, to 30 on 07/15 from 15 - trending down now - suspected steroids effect , not new infection Pneumonia, suspected -on ABX for Aerococcus in urine , cefepime 07/13- 07/18 , OFF ABX NOW - follow cxr am, WBC trending down - blood cx 07/13 neg - cxr tomorrow chronic tachycardia - atenolol started 07/15 - HR controlled now HTN DMII - meds as per PCP Intermittent confusion/ anxiety - on resperidol, Zoloft, weaning down Ativan, as per Dr Ji - patient is not able to make health care desicions , applied for [facility] Lines : peripheral Maxwell: 07/13 - Nutrition: po, to advance , poor appetite , add ensure DVT proph: lovenox 40 SUP - on steroids - H2bl Plans in collaboration with bedside consultants and IM MDs. Discussed with Dr Ji Discussed with RN to reach out if any questions or concerns A total of 37 minutes of critical care time was devoted to this patient today, required to treat and/or prevent further deterioration of critical care condition ( as above ) . BENJY FARR MD Jul 18, 2020 11:30
[2020-07-18 13:24] LABS: ABG BASE EXCESS 8.7 MMOL/L (-2.5-2.5); ABG OXYGEN SATURATION 94 % (94-100); ABG PO2 71 MMHG (79-93); ABG TCO2 37.9 MMOL/L (21.0-31.0)
[2020-07-18 13:26] LABS: ABG PCO2 75 MMHG (35-45); ABG PH 7.29 (7.37-7.43); ALLENS TEST YES-POS
[2020-07-18 13:27] LABS: INSPIRED O2 90%; PATIENT TEMP 35.7; VENTILATOR NO
--- NOTE | 2020-07-18 13:39 | Diagnostic Imaging Report ---
PROCEDURE: CT chest without contrast. TECHNIQUE: Multiple contiguous axial images were obtained through the chest without the use of intravenous contrast. Auto Exposure Controls were utilized during the CT exam to meet ALARA standards for radiation dose reduction. INDICATION: Pneumonia. There are no prior CT chest examinations available for comparison. The plain film examination of the chest performed earlier today at 3:59 a.m. noted alveolar/interstitial pulmonary infiltrates involving both lungs, particularly the left lung. There also appear to be a left pleural effusion. On this study there are bilateral pleural effusions. The effusion on the left measures approximately 4.8 cm in maximum depth while the right-sided effusion is estimated to be 3.6 cm. There is considerable atelectasis/infiltrate associated with both lung bases particularly the left lower lobe. There is no sign of an endobronchial lesion but there does appear to be bilateral hilar adenopathy. There are also a number of borderline enlarged pretracheal and aorticopulmonary window nodes. There is also a small irregular 11 mm pleural based nodule along the periphery of the left upper lung. This finding is more likely due to scar formation than to neoplasm. The heart is mildly enlarged and there may be a trace pericardial effusion. Extensive coronary artery calcifications are noted. The aorta is not abnormally dilated. The thyroid gland where visualized is unremarkable. There is no obvious breast mass. The images through the upper abdomen failed to show any sign of an acute abnormality. The bone windows are also unremarkable for a fracture or for a destructive lesion. IMPRESSION: 1. There is bilateral pneumonia/atelectasis and bilateral pleural effusions with greater involvement on the left. There is no sign of a neoplastic endobronchial lesion but there does appear to be bilateral hilar and mediastinal adenopathy. 2. The heart is mildly enlarged and there are coronary artery calcifications evident. Dictated by: Dictated on workstation # [id number]
--- NOTE | 2020-07-18 13:41 | Physical Therapy Progress Note ---
Therapy Progress Note Hold per RN secondary to decrease in pulmonary status. Patient is unresponsive and on BiPap per RN. PATI GORDILLO PT Jul 18, 2020 13:41
[2020-07-18 14:45] VITALS: BP 121/64
[2020-07-18 14:56] LABS: ABG BASE EXCESS 9.5 MMOL/L (-2.5-2.5); ABG OXYGEN SATURATION 97 % (94-100); ABG PO2 126 MMHG (79-93); ABG TCO2 41.1 MMOL/L (21.0-31.0)
[2020-07-18 14:57] LABS: ABG PH 7.19 (7.37-7.43)
[2020-07-18 14:58] LABS: ABG PCO2 100 MMHG (35-45); INSPIRED O2 100%; PATIENT TEMP 35.7; VENTILATOR NO
[2020-07-18] MEDS ORDERED: RT-ALBUTEROL/IPRATROPIUM 3 ML (DUONEB) VIAL INH PRN (15:15)
[2020-07-18] MEDS ORDERED: GLYCOPYRROLATE 0.2 MG/ML (ROBINUL) 2 ML VIAL IV PRN (15:15)
[2020-07-18] MEDS ORDERED: SALIVA STIMULANT MOUTH SPRAY (BIOTENE) 1.5 OZ MM PRN (15:15)
[2020-07-18] MEDS ORDERED: SCOPOLAMINE 1.5 MG (TRANSDERM-SCOP) PATCH TOP SCH (15:15)
[2020-07-18] MEDS ORDERED: ONDANSETRON 4 MG/2 ML (SDV) Z0FRAN IVP PRN (15:15)
[2020-07-18] MEDS ORDERED: ATROPINE 1% OPHTHALMIC SOLN 2 ML SL PRN (15:15)
[2020-07-18] MEDS ORDERED: LORazepam ORAL CONCENTRATE 2 MG/ML 30 ML (ATIVAN) PO PRN (15:15)
--- NOTE | 2020-07-18 15:52 | Tele-ICU Progress Note ---
Progress Note Discussed with patient's family - daughter and granddaughter Discussed Dx , TX options , prognosis and expectations All questions answered Family express full understanding , and considering honor patient's wishes and switch for comfort measures. orders placed in chart to be available when family is ready Meanwhile cont BIPAP , pressure increased given worsening acidosis If not change to comfort shortly - will add abx ( 20 min ) Focused Exam Height, Weight, BMI Height: '" Weight: lbs. oz. kg; 29.75 BMI Method:Stated BENJY FARR MD Jul 18, 2020 15:52
[2020-07-18] MEDS: LORazepam INJ 2 MG/ML (ATIVAN) VIAL IVP PRN ×3 (16:17→21:35)
[2020-07-18] MEDS: morphine INJ 4 MG/ML 1 ML (VIAL/SYRINGE) IV PRN ×3 (16:17→21:35)
--- NOTE | 2020-07-19 06:45 | Discharge Summary ---
Diagnosis/Chief Complaint Date of Admission July 13, 2020 at 13:30 Date of Discharge Jul 19, 2020 at 00:03 Primary Care Italia Goldman MD Discharge Diagnosis (1) Acute respiratory failure with hypoxia (2) HTN (hypertension) (3) DMII (diabetes mellitus, type 2) (4) Hypokalemia (5) Hypomagnesemia (6) COPD exacerbation Status: Acute (7) Severe sepsis Status: Acute (8) Pneumonia Status: Acute Discharge Summary Discharge Physical Exam Allergies: Coded Allergies: Sulfa (Sulfonamide Antibiotics) (Verified Allergy, Unknown, 09/03/11) Tetanus Vaccines and Toxoid (Verified Allergy, Unknown, 09/03/11) Vitals & I&Os Vital Signs Date Time Temp Pulse Resp B/P (MAP) Pulse Ox O2 Delivery O2 Flow Rate FiO2 07/18/20 21:24 High Flow N/C 2.00 07/18/20 19:53 36.4 07/18/20 19:00 83 07/18/20 16:00 19 120/63 (82) 96 07/18/20 13:19 95 Hospital Course Labs (last 24 hrs) Laboratory Tests 07/18/20 11:10: Glucometer 228H 07/18/20 13:09: Blood Gas Puncture Site LT RAD, Blood Gas Patient Temperature 35.7, Arterial Blood pH 7.29*L, Arterial Blood Partial Pressure CO2 75*H, Arterial Blood Partial Pressure O2 71L, Arterial Blood HCO3 36H, Arterial Blood Total CO2 37.9H , Arterial Blood Oxygen Saturation 94, Arterial Blood Base Excess 8.7H, Lenny Test YES-POS, Blood Gas Ventilator Setting NO, Blood Gas Inspired Oxygen 90% 07/18/20 14:28: Blood Gas Puncture Site LT RAD, Blood Gas Patient Temperature 35.7, Arterial Blood pH 7.19*L, Arterial Blood Partial Pressure CO2 100*H, Arterial Blood Partial Pressure O2 126H, Arterial Blood HCO3 38H, Arterial Blood Total CO2 41.1H, Arterial Blood Oxygen Saturation 97, Arterial Blood Base Excess 9.5H, Lenny Test NA, Blood Gas Ventilator Setting NO, Blood Gas Inspired Oxygen 100% Microbiology 07/13/20 Urine Culture - Final, Complete Aerococcus urinae 07/13/20 MRSA Screen - Final, Complete MRSA not isolated 07/13/20 Blood Culture - Preliminary, Resulted Staph, Coag Neg (CART[employer]) Patient resulted labs reviewed. Discharge Home Medications: Active Scripts Active Reported Ativan (Lorazepam) 1 Mg Tablet 1 Mg PO BID PRN Aspirin EC (Aspirin) 81 Mg Tablet.dr 81 Mg PO DAILY Losartan Potassium 25 Mg Tablet 50 Mg PO DAILY TAKES 2 (25MG) TABS Furosemide 20 Mg Tablet 20-40 Mg PO DAILY PRN Atenolol 50 Mg Tablet 100 Mg PO DAILY TAKES 2 (50MG) TABS Simvastatin 20 Mg Tablet 20 Mg PO HS Metformin HCl ER (Metformin HCl) 500 Mg Tab.er.24 1,000 Mg PO DAILY TAKES 2 (500MG) TABS Albuterol Sulfate 2.5 Mg/0.5 Ml Vial.neb 2.5 Mg INH Q4H PRN Instructions to patient/family Please see electronic discharge instructions given to patient. Problem Qualifiers (1) HTN (hypertension): Hypertension type: essential hypertension Qualified Codes: I10 - Essential (primary) hypertension (2) Pneumonia: Pneumonia type: due to unspecified organism Laterality: bilateral Lung location: lower lobe of lung Qualified Codes: J18.9 - Pneumonia, unspecified organism IDANIA WHITAKER MD Jul 19, 2020 06:45
[2020-07-21] MEDS ORDERED: SCOPOLAMINE PATCH REMOVAL TP SCH (15:14)
== END 2020-07-19 00:03 | disposition expired | DRG 871 ==
LOC: ER 12:35 → EDUNIT# 12:36 → ICU 13:30
PROVIDERS: ADMIT Family Medicine; ATTEND Family Medicine
PROC: 5A09357 Assistance with Respiratory Ventilation, Less than 24 Consecutive Hours, Continuous Positive Airway Pressure (ICD-10-PCS; principal; 2020-07-18)
DX: A41.9 Sepsis, unspecified organism (principal); J18.9 Pneumonia, unspecified organism; J96.01 Acute respiratory failure with hypoxia; J96.02 Acute respiratory failure with hypercapnia; J44.1 Chronic obstructive pulmonary disease with (acute) exacerbation; J90 Pleural effusion, not elsewhere classified; I10 Essential (primary) hypertension; E11.9 Type 2 diabetes mellitus without complications; Z66 Do not resuscitate; Z51.5 Encounter for palliative care; M19.90 Unspecified osteoarthritis, unspecified site; Z20.822 Contact with and (suspected) exposure to COVID-19; R65.20 Severe sepsis without septic shock; D72.829 Elevated white blood cell count, unspecified; T38.0X5A Adverse effect of glucocorticoids and synthetic analogues, initial encounter; R00.0 Tachycardia, unspecified; F41.9 Anxiety disorder, unspecified; E78.5 Hyperlipidemia, unspecified; E87.6 Hypokalemia; E83.42 Hypomagnesemia; Z88.2 Allergy status to sulfonamides; Z88.7 Allergy status to serum and vaccine; Z79.82 Long term (current) use of aspirin; Z87.891 Personal history of nicotine dependence; Z95.5 Presence of coronary angioplasty implant and graft; Z79.899 Other long term (current) drug therapy; I25.2 Old myocardial infarction
CPT/HCPCS: 36410; 36415; 36600; 71045; 71250; 76937; 80048; 80053; 81000; 82805; 82947; 83605; 83735; 83880; 84100; 84145; 85007; 85025; 85027; 85610; 85730; 86141; 87040; 87077; 87081; 87088; 87636; 93306; 94640; 94660